=== PATIENT | male | born 1935 | race Caucasian/White ===

== ENCOUNTER 2019-11-18 07:01 | Emergency (ER) | payer MEDICARE, SELFPAY ==
--- NOTE | ~2019-11-18 | XR_ITS ---
EXAMINATION: XR tibia fibula LT 2V INDICATION: Left leg pain TECHNIQUE: Two views of the left leg are obtained on four radiographs COMPARISON: None available FINDINGS: There is medial soft tissue swelling overlying the distal tibia. No fracture, dislocation, or subluxation is identified. Mild osteoarthritis is noted in the knee and ankle. There is calcified atherosclerosis. IMPRESSION: 1. Soft tissue swelling overlying the distal leg without underlying osseous abnormality. Reviewed, dictated and finalized at location A. EY RIDE OPERATOR IMPRESSION: 1. Soft tissue swelling overlying the distal leg without underlying osseous abn ormality.
[2019-11-18 07:00] VITALS: BP 99/69; PULSE 97; RESP 18; TEMP 37.1; O2SAT 95
--- NOTE | 2019-11-18 07:04 | ED.LOWEXIN ---
HPI - Extremity Injury (Lower) General Chief Complaint: Extremity Injury, Lower Stated Complaint: leg pain History of Present Illness HPI Narrative: He was hit in the left meraz with a log while splitting wood last night. He had pain at the time, but it was only mild when not bearing weight. He was able to get around using a crutch, but could not walking unassisted. This morning the pain is no better and he has bruising to the meraz. No significant wound. Related Data Home Medications Medication Instructions Recorded Confirmed aspirin 81 mg PO DAILY 08/18/19 08/18/19 atorvastatin 08/18/19 carvedilol 08/18/19 docusate sodium [Stool Softener] PO 08/18/19 metolazone 08/18/19 ramipril mg 08/18/19 albuterol sulfate 90 mcg/actuation 2 puff INHALATION Q4-6H PRN gm 08/26/19 aerosol inhaler colchicine 0.6 mg tablet 1.2 mg PO .COMPLEX PRN tablet 08/26/19 umeclidinium 62.5 mcg-vilanterol 1 inhalation INHALATION DAILY 08/26/19 25 mcg/actuation powdr for inhalation Allergies Allergy/AdvReac Type Severity Reaction Status Date / Time No Known Allergies Allergy Verified 11/18/19 07:18 Review of Systems Constitutional: Constitutional: Denies weakness Eyes: Eyes: Denies change in vision Cardiovascular: Cardiovascular: Denies chest pain Respiratory: Respiratory: Reports dyspnea Gastrointestinal: Gastrointestinal: Denies nausea Neurologic: Denies numbness and Denies weakness PMFSH Past Medical History Medical History BPH (benign prostatic hyperplasia) Cyst on ear Hernia HTN (hypertension) Hyperlipidemia Myocardial infarction Surgical History Surgical History H/O hernia repair History of cardiac catheterization History of removal of cyst from ear Stented coronary artery Family History Family History Mother Family history of malignant neoplasm of kidney Social History Social History Smoking status: Former smoker Alcohol intake: never Gender identity (if verbalized by the patient): Male Exam Const: General: healthy appearing, no acute distress and alert Nutritional Appearance: well nourished Orientation/consciousness: patient oriented x3 HENMT: Head: normal to inspection Neck: Neck: normal visual inspection Resp: Effort & Inspection: normal respiratory effort Cardio: Other: 2+ DP on left Skin: General skin exam: normal color Wounds: wounds noted (minor abrasions to left meraz) Neuro: General: patient oriented x3 and moves all extremities Speech: normal speech Extrem: Other: bruising, abrasions and tenderness to left lateral meraz. No deformity. Normal ROM in left knee. Course Vital Signs Vital signs: Vital Signs Temperature 37.1 C 11/18/19 07:00 Pulse Rate 97 11/18/19 07:00 Respiratory Rate 18 11/18/19 07:00 Blood Pressure 99/69 L 11/18/19 07:00 Pulse Oximetry 95 11/18/19 07:00 Temperature 37.1 C 11/18/19 07:00 Pulse Rate 92 11/18/19 10:41 Respiratory Rate 18 11/18/19 10:41 Blood Pressure 104/69 11/18/19 10:41 Pulse Oximetry 96 11/18/19 10:41 Discharge Plan Discharge Clinical Impression: Contusion of left lower leg Qualifiers: Encounter type: initial encounter Qualified Code(s): S80.12XA - Contusion of left lower leg, initial encounter Patient Disposition: Home, Self-Care Condition: Stable Instructions: Contusion in Adults (ED) Prescriptions: No Action Anoro Ellipta 62.5-25 mcg/actuation blister with device 1 inhalation INHALATION DAILY RF: 0 albuterol sulfate [ProAir HFA] 90 mcg/actuation HFA aerosol inhaler 2 puff INHALATION Q4-6H PRNRF: 0 colchicine 0.6 mg tablet 1.2 mg PO .COMPLEX PRNRF: 0 metolazone 2.5 mg tablet RF: 0 atorvastatin 40 mg tablet
[2019-11-18 09:19] VITALS: BP 104/69; PULSE 80; RESP 18; O2SAT 97
[2019-11-18 10:41] VITALS: BP 104/69; PULSE 92; RESP 18; O2SAT 96
[2019-11-18] MEDS: ACETAMINOPHEN 500 MG TABLET 1000 MG PO (10:41)
== END 2019-11-18 10:43 | disposition home or self-care (01) ==
PROVIDERS: Emergency Provider Emergency Medicine; PCP Family Medicine
DX: S80.12XA Contusion of left lower leg, initial encounter (principal); N40.0 Benign prostatic hyperplasia without lower urinary tract symptoms; I10 Essential (primary) hypertension; E78.5 Hyperlipidemia, unspecified; I25.2 Old myocardial infarction; Z79.82 Long term (current) use of aspirin; Z95.5 Presence of coronary angioplasty implant and graft; Z87.891 Personal history of nicotine dependence; W22.8XXA Striking against or struck by other objects, initial encounter
CPT/HCPCS: 73590; 99283; A9270; J2704

== ENCOUNTER 2020-11-17 07:07 | Outpatient (CLI) | payer MEDICARE, SELFPAY ==
--- NOTE | 2020-11-17 07:42 | ECHO_ITS ---
Patient Info Name: Ernesto Su Age: 85 years : 1935 Gender: Male Ht: 72 in Wt: 250 lbs BSA: 2.44 m2 HR: 57 bpm BP: 119 / 67 mmHg Technical Quality: Good Exam Date: 11/17/2020 8:09 AM Exam Location: [facility] Patient Status: Outpatient Admit Date: 11/17/2020 Staff Ordering Physician: Ami Kim MD Draftsperson: Jericho Flores RDCS, RT Attending Provider: Ami Kim MD Referring Physician: Judy PULLIAM; Exam Type: CA echo doppler color flow Study Info Indications R06.02 - Shortness of breath Complete two-dimensional, color flow and Doppler transthoracic echocardiogram is performed. Summary 1. Complete two-dimensional, color flow and Doppler transthoracic echocardiogram is performed. 2. Left ventricular chamber dimension is normal. 3. The left ventricular diastolic function is grade I diastolic dysfunction. 4. Left ventricular systolic function is preserved, estimated at 50-55%. 5. E/e' 8 is minimally elevated. 6. Left atrial chamber dimension is mildly enlarged. 7. Right atrial chamber dimension is mildly enlarged. 8. There is mild aortic valve sclerosis. Left Ventricle E/e' 8 is minimally elevated. Left ventricular systolic function is preserved, estimated at 50-55%. Left ventricular chamber dimension is normal. The left ventricular diastolic function is grade I diastolic dysfunction. Right Ventricle Right ventricular systolic function is normal and with normal TAPSE 2.3 cm.. Right ventricular chamber dimension is normal. Left Atria Left atrial chamber dimension is mildly enlarged. Right Atria Right atrial chamber dimension is mildly enlarged. Aortic Valve The aortic valve is not well visualized. Cannot determine number of aortic valve leaflets. There is mild aortic valve sclerosis. There is no aortic valve stenosis. There is no aortic valve regurgitation. Pulmonic Valve The pulmonic valve is not well visualized. Mitral Valve There is no mitral valve stenosis. There is no mitral valve regurgitation. Tricuspid Valve There is no tricuspid valve regurgitation. Pericardium/Pleural There is no pericardial effusion. Inferior Vena Cava Normal inferior vena cava with >50% collapse upon inspiration consistent with normal right atrial pressure, 5 mmHg. Aorta The aortic root size at the sinus of Valsalva is normal. Left Ventricular Outflow Tract Name Value Normal LVOT 2D LVOT Diameter 2.0 cm LVOT Doppler LVOT Peak Gradient 2 mmHg LVOT Mean Gradient 1 mmHg LVOT VTI 14 cm LVOT VTI/AV VTI Ratio 0.7 LVOT Stroke Volume 48 ml LVOT CO 3.1 l/min LVOT CI 1.3 l/min/m2 Mitral Valve Name Value Normal MV Doppler
--- NOTE | 2020-11-17 16:19 | WPDPFTINT ---
PFT Interpretation This is a pulmonary function test with pre and post-bronchodilator spirometry, plethysmography and diffusing capacity. The test was performed and results interpreted in accordance with the 2019 and 2005 ATS/ERS Task Force guidelines respectively using the Dimas/Polvan reference equations. Findings: Spirometry: There is decreased maximal expiratory airflow at all lung volumes with concave expiratory flow tracing. The inspiratory flow tracing is normal. The pre bronchodilator FVC is 3.20 L, 75% predicted. The pre bronchodilator FEV1 is 1.27 L, 48% predicted. The FEV1: FVC ratio is 40%. The post bronchodilator FVC is 3.15 L, representing a 1% decrease. The post bronchodilator FEV1 is 1.27 L, representing no change. Plethysmography: The total lung capacity 7.15 L, 107% predicted. The functional residual capacity is 5.03 L, 145% predicted. The residual volume is 3.95 L, 137% predicted. Diffusing capacity: The absolute diffusion capacity is 16.1, 71% predicted. The diffusing capacity corrected for alveolar volume is 4.18, 130% predicted. Impression: There is a severe obstructive abnormality without significant improvement after inhaling a single dose of albuterol. The increase in residual volume is consistent with air trapping from an obstructive abnormality. Hyperinflation is present is demonstrated by the increase in functional residual capacity and is consistent with an obstructive abnormality. The diffusing capacity is normal. There are no prior studies for comparison
--- NOTE | 2020-11-17 16:22 | WPDSIXMINUTE ---
Six Minute Walk This is a 6 minutes walk test. The test was performed and interpreted in accordance with the 2014 ERS/ATS task force guidelines. Findings: The patient's resting room air oxygen saturation measured by pulse oximetry was 94% and her heart rate was 71 bpm. Patient ambulated for 137 meters and oxygen saturation remained 92 to 94%. Heart rate at the end of the study was 96 bpm. There are no prior studies for comparison.
== END 2020-11-17 07:08 | disposition home or self-care (01) ==
PROVIDERS: Family Provider Family Medicine; PCP Family Medicine; Visit Provider Internal Medicine Critical Care Medicine
DX: R06.00 Dyspnea, unspecified (principal); R94.2 Abnormal results of pulmonary function studies
CPT/HCPCS: 93306; 94060; 94618; 94726; 94729

== ENCOUNTER 2021-02-10 15:29 | Outpatient (CLI) | payer MEDICARE, SELFPAY ==
--- NOTE | ~2021-02-10 | XR_ITS ---
XR hand LT 2V DATE: 02/10/2021 15:56 INDICATION: Pain and swelling of second digit at metacarpophalangeal joint for 4 days TECHNIQUE: 3 views of left hand COMPARISON: 04/12/2019 left wrist FINDINGS: Diffuse osteopenia. There is severe osteoarthritic change at the first carpometacarpal joint. Osteoarthritic changes noted at some of the interphalangeal joints, primarily distal interphalangeal joints. Plate and screws are noted along the shaft of the proximal phalanx of the fourth digit. There is flex ion deformity at the fourth digit proximal interphalangeal joint and extension deformity at the dista l interphalangeal joint. No recent fracture or dislocation, periosteal reaction or bone destruction. 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
[2021-02-10 17:29] LABS: Uric Acid 10.6 mg/dL (3.5-8.5)
== END 2021-02-10 15:30 | disposition home or self-care (01) ==
PROVIDERS: PCP Family Medicine; Visit Provider Nurse Practitioner Family
DX: M25.40 Effusion, unspecified joint (principal); M19.042 Primary osteoarthritis, left hand; M79.645 Pain in left finger(s); M21.242 Flexion deformity, left finger joints
CPT/HCPCS: 36415; 73120; 84550

== ENCOUNTER 2021-03-12 07:59 | Outpatient (CLI) | payer MEDICARE, SELFPAY ==
[2021-03-12 08:23] LABS: Uric Acid 9.1 mg/dL (3.5-8.5)
== END 2021-03-12 08:00 | disposition home or self-care (01) ==
LOC: ANHLAB 08:02
PROVIDERS: PCP Family Medicine; Visit Provider Nurse Practitioner Family
DX: M10.9 Gout, unspecified (principal)
CPT/HCPCS: 36415; 84550

== ENCOUNTER → 2021-04-19 11:06 | Outpatient (CLI) | payer MEDICARE, SELFPAY ==
--- NOTE | ~2021-04-19 | XR_ITS ---
EXAMINATION: XR foot LT min 3V, XR foot RT min 3V DATE: 04/19/2021 11:50 INDICATION: Bilateral foot pain TECHNIQUE: 1. Dorsoplantar, two oblique and lateral views of the left foot were obtained. 2. Dorsoplantar, two oblique and lateral views of the right foot were obtained. COMPARISON: None. FINDINGS: Bilateral hallux valgus, 25 degrees on the left and 35 degrees on the right. Otherwise normal alignme nt at both feet. No fractures. Diffuse osteopenia at both feet. Mild polyarticular osteoarthritis thr oughout both feet. Small bilateral plantar calcaneal spurs. Small likely degenerative loose body ante riorly at the right ankle joint. No ankle joint effusions. Mild subcutaneous edema throughout both fe et. IMPRESSION: 1. Relatively symmetric diffuse osteopenia and mild polyarticular osteoarthritis at both feet. No acu te osseous abnormality. 2. Mild left and moderate right hallux valgus. Reviewed, dictated and finalized at location A. IMPRESSION: 1. Relatively symmetric diffuse osteopenia and mild polyarticular osteoarthriti s at both feet. No acute osseous abnormality. 2. Mild left and moderate right hallux valgus.
== END ==
PROVIDERS: PCP Family Medicine; Visit Provider Nurse Practitioner Family
DX: M20.11 Hallux valgus (acquired), right foot (principal); M20.12 Hallux valgus (acquired), left foot; M19.071 Primary osteoarthritis, right ankle and foot; M19.072 Primary osteoarthritis, left ankle and foot
CPT/HCPCS: 73630

== ENCOUNTER 2021-10-18 13:24 | Observation (INO) | payer MEDICARE, SELFPAY ==
[2021-10-18] VITALS (8 sets, daily range): BP systolic 119–156; BP diastolic 66–88; PULSE 77–93; RESP 17–42; TEMP 36–36.9; O2SAT 89–99; BMI 31.6
--- NOTE | ~2021-10-18 | XR_ITS ---
XR chest 1V portable 10/18/2021 14:14 Indication: Sudden onset of shortness of breath. Hypertension. Procedure: AP portable chest Comparison: Comparison to multiple prior studies sequentially, with oldest reviewed study dated 06/26. Findings: Bibasilar airspace disease, compatible with pneumonia. No significant effusion. No pneumoth orax. Pacemaker leads in expected position. Impression: 1: Bibasilar airspace disease, compatible with pneumonia. Reviewed, dictated and finalized at location B. T SUPERINTENDENT Impression: 1: Bibasilar airspace disease, compatible with pneumonia.
--- NOTE | ~2021-10-18 | XR_ITS ---
XR chest 2V 10/20/2021 09:24 Indication: Pneumonia Procedure: AP and lateral views of the chest Comparison: 10/18/2021 Findings: Heart size normal. Pacemaker leads are stable. There is bibasilar atelectasis. No focal pne umonia, edema, significant effusion or pneumothorax. There is atherosclerosis of the aorta. The lungs are hyperinflated which is consistent with, but not diagnostic of chronic obstructive pulmonary dise ase. Impression: 1: Bibasilar atelectasis. Reviewed, dictated and finalized at location B. ESSIONAL DEVELOPMENT INSTRUCTOR Impression: 1: Bibasilar atelectasis.
--- NOTE | 2021-10-18 13:56 | ECG_ITS ---
Measurements Intervals [place] Rate: 80 P: 9 AR: 206 QRS: -66 QRSD: 132 T: 68 QT: 398 QTc: 462 Interpretive Statements ELECTRONIC ATRIAL PACEMAKER ELECTRONIC VENTRICULAR PACEMAKER BASELINE ARTIFACT- I, II, III, AVR, AVL, AVF, V1-V6 NO FURTHER INTERPRETATION IS POSSIBLE ATYPICAL ECG Electronically Signed On 10-18-2021 14:12:56 DICER OPERATOR by Chapo Navarrete D.O.
--- NOTE | 2021-10-18 14:11 | ED.GENADULT ---
HPI - General Adult General Chief complaint: Shortness of Breath/Dyspnea Stated complaint: diff breathing Time Seen by Provider: 10/18/21 14:10 Source: patient and family Limitations: no limitations History of Present Illness HPI narrative: 85-year-old male history of PAD and COPD presents to the emergency department for evaluation of worsening shortness of breath. Patient states that he did have a fall on Monday and initially did not suspect that he injured himself. Patient states since that time he had worsening shortness of breath. Patient presents with his sister who states that when she went to see him this morning he had just walked and had much worse shortness of breath after exertion. Patient is not on oxygen at home. Patient states he did have wheezing at home. Upon arrival to emergency department patient does have increased work of breathing with associated wheeze. Patient is vaccinated against Covid. Patient states he had his pacemaker placed the Monday after [employer]. Related Data Allergies Allergy/AdvReac Type Severity Reaction Status Date / Time No Known Allergies Allergy Verified 10/18/21 13:41 Review of Systems Review of Systems: CONSTITUTIONAL: Denies fever, chills, or sweats. EYES: Denies visual changes, redness, or discharge. ENT: Denies rhinorrhea, congestion, sore throat, or otalgia. CARDIOVASCULAR: Denies chest pain, palpitations, or edema. RESPIRATORY: Cough and wheezing GASTROINTESTINAL: Denies abdominal pain, nausea, vomiting, or diarrhea. GENITOURINARY: Denies dysuria or hematuria. SKIN: Denies rash or itching. MUSCULOSKELETAL: Denies back pain, joint pain, or myalgia. Bilateral rib pain NEUROLOGIC: Denies headache, numbness, or weakness. [facility] Past Medical History Medical History (Updated 10/18/21 @ 14:45 by Srinivasan Wright MD) BMI 31.0-31.9,adult Body mass index (BMI) of 33.0 to 33.9 in adult BPH (benign prostatic hyperplasia) Cyst on ear Dyspnea Foot ulcer, right Hernia HTN (hypertension) Hyperlipidemia Hypokalemia Low vitamin D level Myocardial infarction Pain in left foot Pain in right foot Right medial knee pain Sick sinus syndrome Surgical History Surgical History H/O hernia repair History of cardiac catheterization History of removal of cyst from ear Stented coronary artery Family History Family History Mother Family history of malignant neoplasm of kidney Cancer Father No problems noted. Sibling No problems noted. Social History Social History Tobacco type: cigarettes Alcohol intake: former Substance use: never Substance use type: does not use Additional occupation/education comments: [employer]. Gender identity (if verbalized by the patient): Male Exam Narrative: APPEARANCE: Well appearing, no pain, no distress, well-nourished. Increased work of breathing HEAD: normocephalic, atraumatic. EYES: PERRLA/EOMI, conjunctivae clear. NOSE: Normal no drainage NECK: Supple. No adenopathy, no masses. RESPIRATORY: Airway patent, respirations nonlabored. Wheeze in all lung scherer CARDIOVASCULAR: Regular rate and rhythm without murmurs rubs or gallops. ABDOMINAL: Soft, nontender, nondistended, normal bowel sounds MUSCULOSKELETAL: Moves all extremities. Strength/ROM intact, No edema, No calf tenderness. NEURO: Alert. Cranial nerves II through XII intact. SKIN: Warm, dry. Normal Color Course Course Emergency Course: Chest x-ray was read as suspected pneumonia. Patient does have significant wheeze on exam. Patient was started on antibiotics Rocephin and azithromycin for underlying pneumonia. Patient was also started on site Medrol for possible underlying COPD exacerbation. Covid test was negative. Did have a new O2 requirement on arrival. Case wa
[2021-10-18] MEDS: methylPREDNISolone SOD SUCC 125 MG VIAL IV PUSH (14:16)
[2021-10-18] MEDS: ALBUTEROL SULFATE NEB 2.5 MG/0.5 ML INH 5 MG INHALATION (14:30)
[2021-10-18 14:38] LABS: Alveolar/Arterial O2 Gradient 93.1 mmHg; Base Excess ABG 7.5 mEq/l (+/-2.0); Carboxyhemoglobin 0.6 % THb (0-2.0); Fractional Inspired Oxygen 28 %; HCO3 ABG 33.7 mEq/l (22.0-26.0); Methemoglobin ABG 0.1 %THb (0-1.5); PCO2 ABG 54.2 mmHg (35.0-45.0); PO2 FiO2 Ratio Arterial Blood 1.52 %; Reduced Hemoglobin 21.9 %THb (0-5.0); Total Hemoglobin 13.8 g/dL (12.0-18.0); pH ABG 7.412 (7.350-7.450)
[2021-10-18 14:39] LABS: Basophils Percent Auto 0.4 % (0.2-1.2); Eosinophils Absolute Auto 0.4 K/mm3 (0-0.3); Eosinophils Percent Auto 3.9 % (0-4.4); Hematocrit 43.8 % (42.0-52.0); Hemoglobin 14.1 g/dL (14.0-18.0); Immature Granulocyte Absolute 0.05 K/mm3 (0.00-0.031); Immature Granulocyte Percent A 0.5 % (0-0.5); Lymphocytes Percent Auto 19.3 % (18.3-44.2); Mean Corpuscular HGB Conc 32.2 g/dl (32-36); Mean Corpuscular Hemoglobin 31.5 pg (26-34); Mean Corpuscular Volume 97.8 fl (80-100); Mean Platelet Volume 10.4 fl (7.4-10.4); Monocytes Absolute Auto 1.1 K/mm3 (0.1-0.6); Monocytes Percent Auto 11.4 % (2.6-8.5); Neutrophils Absolute Auto 6.4 K/mm3 (1.3-6.7); Neutrophils Percent Auto 64.5 % (45.5-73.1); Platelet Count Result 208 k/mm3 (150-375); Red Blood Count 4.48 M/mm3 (4.6-6.20); Red Cell Distribution Width 14.3 % (11.5-14.5); White Blood Count 9.9 K/mm3 (4.5-10.0)
[2021-10-18 14:41] LABS: Oxygen Saturation ABG 77.9 % (95.0-100.0); PO2 ABG 42.6 mmHg (80.0-100.0)
[2021-10-18 14:42] LABS: Device NASAL CANNULA; Modified Allen's Test Pass; Oxyhemoglobin 77.4 % THb (90.0-100.0); Site Drawn RIGHT RADIAL
[2021-10-18 14:51] LABS: INR 1.3; Partial Thromboplastin Time 33.4 SECONDS (22.3-36.8); Prothrombin Time 16.3 Seconds (11.1-14.7)
[2021-10-18 14:54] LABS: Alanine Aminotransferase 24 U/L (4-50); Albumin Level 3.9 g/dL (3.5-5.1); Alkaline Phosphatase 121 U/L (38-126); Anion Gap 5 mmol/L (8-16); Aspartate Amino Transferase 51 U/L (17-59); Bilirubin,Total 0.9 mg/dL (0.2-1.3); Blood Urea Nitrogen 35 mg/dL (9-20); Calcium 8.8 mg/dL (8.4-10.2); Carbon Dioxide 38 mmol/L (22-30); Chloride 98 mmol/L (98-107); Estimated CRCL calculation 53 ml/min; Estimated Glomerular Filt Rate 58; Glucose 128 mg/dL (65-110); Potassium 3.9 mmol/L (3.4-5.0); Sodium 141 mmol/L (137-145)
[2021-10-18 15:05] LABS: NT Pro B Type Natriuretic Pept 1610 pg/mL (5-100); Troponin I 0.023 ng/mL (0.000-0.034)
[2021-10-18 15:10] LABS: SARS-CoV-2 RNA PCR Negative
--- NOTE | 2021-10-18 20:17 | PM.IMHP ---
H&P: HPI History of Present Illness Date/Time: 10/18/21 20:17 Chief Complaint: SHORTNESS OF BREATH Narrative: This is an 85-year-old male with past medical history significant for severe COPD/emphysema, hypertension, benign prostatic hyperplasia, dyslipidemia, myocardial infarction, sick sinus rhythm. Patient presented to the emergency room due to worsening shortness of breath and wheezing cough with production of phlegm according to patient he had a ground level fall few days ago and have notice worsening shortness of breath ever since. Patient denies any fevers, rigors, chills, chest pain, PND or leg swelling, no loss of consciousness ,no lightheadedness, no dizziness. In emergency room patient was found to have a low oxygen saturation, was placed on supplemental oxygen by nasal cannula. Preliminary workup was significant for chest x-ray with bibasal lung infiltrates Decision has been made to admit the patient for further evaluation management and treatment. Review of Systems Review of Systems: Worsening shortness of breath, cough sputum production, fall. Constitutional: Constitutional: Denies chills, Denies fever(s), Reports frequent falls and Reports weakness Eyes: Eyes: Denies change in vision ENT: Denies dysphagia, Denies vertigo, Denies dizziness, Denies nasal congestion, Denies nasal discharge, Denies nasal obstruction and Denies odynophagia Cardiovascular: Cardiovascular: Denies chest pain, Denies pedal edema, Denies claudication, Denies leg edema, Denies radiating jaw, neck or arm pain, Denies palpitations, Reports dyspnea, Denies dyspnea on exertion and Denies orthopnea Respiratory: Respiratory: Reports change in phlegm color, Reports cough, Reports excessive phlegm production and Reports dyspnea Gastrointestinal: Gastrointestinal: Denies abdominal pain, Denies diarrhea, Denies nausea and Denies vomiting Genitourinary: Genitourinary: Denies dysuria Musculoskeletal: Comments: Fall Integumentary/Breasts: Skin/Breast: Denies rash Neurologic: Denies focal weakness and Denies Sensory deficit (Neuro) Psychiatric: Psychiatric: Reports no additional psychiatric complaints and Reports as per HPI Endocrine: Endocrine: Denies cold intolerance, Denies heat intolerance, Denies polyphagia, Denies polydipsia and Denies palpitations Hematologic/Lymphatic: Hematologic/Lymphatic: Reports no additional hematologic/lymphatic complaints and Reports as per HPI Allergic/Immunologic: Allergic/Immunologic: Reports no additional allergic/immunologic complaints and Reports as per [facility] Past Medical History Medical History (Updated 10/19/21 @ 04:08 by Damon Casper MD) BMI 31.0-31.9,adult Body mass index (BMI) of 33.0 to 33.9 in adult BPH (benign prostatic hyperplasia) Cyst on ear Dyspnea Foot ulcer, right Hernia HTN (hypertension) Hyperlipidemia Hypokalemia Low vitamin D level Myocardial infarction Pain in left foot Pain in right foot Right medial knee pain Sick sinus syndrome Surgical History Surgical History H/O hernia repair History of cardiac catheterization History of removal of cyst from ear Stented coronary artery Family History Family History Mother Family history of malignant neoplasm of kidney Cancer Father No problems noted. Sibling No problems noted. Social History Social History Smoking status: Former smoker Tobacco type: cigarettes Alcohol intake: former Substance use: never Substance use type: does not use Additional occupation/education comments: [employer]. Gender identity (if verbalized by the patient): Male Spiritual care concerns: No Meds Home Medications and Allergies Home Medications Medication Instructions Recorded Confirmed Type alfuzosin 10 mg tablet,extend
--- NOTE | 2021-10-18 22:07 | ADMGEN ---
This patient, Ernesto Su, was admitted to Medical Room 259-01. Patient/family oriented to hospital policies and general routines including ID bracelet, bed and alarms, visiting hours, pain management, procedures, bathroom and other care routines, personal items, smoking policy, room service/diet, and visiting hours. Information on how to activate the Rapid Response Team has been discussed. Patient/Family are encouraged to report perceived risks to care and to ask questions if they do not understand what they are told or what they should do.
[2021-10-19] VITALS (11 sets, daily range): BP systolic 129–154; BP diastolic 65–76; PULSE 75–89; RESP 17–30; TEMP 35.9–36.8; O2SAT 94–97
--- NOTE | 2021-10-19 | ECHO_ITS ---
Patient Info Name: Ernesto Su Age: 85 years : 1935 Gender: Male Ht: 72 in Wt: 230 lbs BSA: 2.33 m2 HR: 83 bpm BP: 145 / 76 mmHg Technical Quality: Fair Exam Date: 10/19/2021 10:08 AM Exam Location: [facility] Patient Status: Inpatient Admit Date: 10/18/2021 Staff Ordering Physician: Damon Casper MD Manager Intermediate: Jericho Flores RDCS, RT Attending Provider: Gabriela Chappell DO Referring Physician: Tremayne HERNANDEZ; Exam Type: CA echo dop color flow w con Study Info Indications I50.9 - Heart failure, unspecified Complete two-dimensional, color flow and Doppler transthoracic echocardiogram is performed with contrast to opacify the left ventricle and to improve the deliniation of the left ventricle endocardial borders. Summary 1. Left ventricular chamber dimension is mildly enlarged. 2. Definity contrast administered improved wall motion interpretation. 3. Left ventricular systolic function is normal, estimated at 55-60%. 4. Left ventricular septal wall motion is abnormal with septal motion related to bundle branch block. 5. The left ventricular diastolic function is grade I diastolic dysfunction. 6. E/e' 10 is mildly elevated. 7. Linear artifact in right ventricle suggestive of catheter(s), pacemaker lead(s), or ICD lead(s). 8. Linear artifact in the right atrium suggestive of catheter(s), pacemaker lead(s), or ICD lead(s). 9. There is mild aortic valve sclerosis. 10. There is trace aortic valve regurgitation. Left Ventricle E/e' 10 is mildly elevated. Definity contrast administered improved wall motion interpretation. Left ventricular chamber dimension is mildly enlarged. Left ventricular systolic function is normal, estimated at 55-60%. Left ventricular septal wall motion is abnormal with septal motion related to bundle branch block. The left ventricular diastolic function is grade I diastolic dysfunction. Right Ventricle Right ventricular systolic function is normal and with normal TAPSE 2.1 cm. Linear artifact in right ventricle suggestive of catheter(s), pacemaker lead(s), or ICD lead(s). Right ventricular chamber dimension is normal. Left Atria Left atrial chamber dimension is normal. Right Atria Linear artifact in the right atrium suggestive of catheter(s), pacemaker lead(s), or ICD lead(s). Right atrial chamber dimension is normal. Aortic Valve The aortic valve is trileaflet. There is mild aortic valve sclerosis. There is no aortic valve stenosis. There is trace aortic valve regurgitation. Pulmonic Valve There is no pulmonic regurgitation. Mitral Valve There is no mitral valve stenosis. There is no mitral valve regurgitation. Tricuspid Valve There is no tricuspid valve regurgitation. Pericardium/Pleural There is no pericardial effusion. Inferior Vena Cava Normal inferior vena cava with >50% collapse upon inspiration consistent with normal right atrial pressure, 5 mmHg. Aorta The aortic root size at the sinus of Valsalva is normal. Left Ventricular Outflow Tract Name Value Normal LVOT 2D LVOT Diameter 2.04 cm LVOT Doppler LVOT Peak Gradient
[2021-10-19] MEDS: methylPREDNISolone SOD SUCC 125 MG VIAL 60 MG IV PUSH ×5 (01:09→23:17)
[2021-10-19] MEDS: ALBUTEROL SULFATE NEB 2.5 MG/0.5 ML INH 5 MG INHALATION ×4 (01:40→20:55)
[2021-10-19] MEDS: IPRATROPIUM BR 0.02% INH SOLN 0.5 MG/2.5 ML VIAL INHALATION ×4 (01:41→20:55)
[2021-10-19] MEDS: ASPIRIN 81 MG CHEWABLE TABLET PO (10:51)
[2021-10-19] MEDS: carvediloL 3.125 MG TABLET PO ×2 (10:51→21:01)
[2021-10-19] MEDS: APIXABAN 2.5 MG TABLET PO ×2 (10:51→16:59)
[2021-10-19] MEDS: ATORVASTATIN 40 MG TABLET PO (10:51)
[2021-10-19] MEDS: FLUTICASONE PROPIONATE 0.05% NA SPR 16 GM BTL (*BKC) 2 SPRAY NASAL (10:52)
[2021-10-19] MEDS: metOLazone 2.5 MG TABLET PO (10:52)
[2021-10-19] MEDS: PREGABALIN (*CRX) 50 MG CAPSULE PO ×2 (10:52→16:59)
[2021-10-19] MEDS: FINASTERIDE 5 MG TABLET PO (10:52)
[2021-10-19] MEDS: PERFLUTREN LIPID MICROSPHERES 1.5 ML VIAL DILUTED TO 10 ML TOTAL VOLUME IV PUSH (10:54)
[2021-10-19] MEDS: cefTRIAXone 2 GM in SODIUM CHLORIDE 0.9% IV 100 ML 200 ML IVPB (13:11)
--- NOTE | 2021-10-19 14:00 | PM.IMPN ---
Progress Note: A&P Assessment and Plan (1) Fall: Code(s): W19.XXXA - Unspecified fall, initial encounter Status: Acute Assessment and Plan: Patient admitted for evaluation after a fall. He was appropriately started a on fall precautions. PT call OT consults have been ordered. Patient will receive a Life Alert upon discharge for safety. Physical therapy as an outpatient. (2) Pneumonia: Qualifiers: Laterality: bilateral Lung location: unspecified part of lung Pneumonia type: due to unspecified organism Qualified Code(s): J18.9 - Pneumonia, unspecified organism Code(s): J18.9 - Pneumonia, unspecified organism Status: Acute Assessment and Plan: Patient started on Rocephin and Zithromax. Continue IV antibiotics. Currently patient is breathing comfortably on room air. (3) COPD with exacerbation: Code(s): J44.1 - Chronic obstructive pulmonary disease with (acute) exacerbation Status: Acute Assessment and Plan: Patient was started on aggressive pulmonary toilet with albuterol and ipratropium nebulization. Continue breathing treatments Breathing treatments. He was given systemic steroids. However there is no evidence of COPD exacerbation at this moment. We will stop steroids. (4) Restless leg syndrome: Code(s): G25.81 - Restless legs syndrome Status: Acute Assessment and Plan: Check iron panel. 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 His blood pressure has been fluctuating between 119/60 6-150 4/75. Continue home medications. (8) Sick sinus syndrome: Code(s): I49.5 - Sick sinus syndrome Status: Acute Assessment and Plan: Status post pacemaker. Check last pacemaker interrogation day. (9) Gout, unspecified: Qualifiers: Gout site: hand Gout etiology: unspecified cause Code(s): M10.9 - Gout, unspecified Status: Acute Assessment and Plan: Stable Continue to monitor (10) Stage 3 chronic kidney disease: Qualifiers: Chronic kidney disease stage 3 subtype: stage 3a (GFR 45-59) Qualified Code(s): N18.31 - Chronic kidney disease, stage 3a Code(s): N18.3 - Chronic kidney disease, stage 3 (moderate) Status: Acute Assessment and Plan: BUN and creatinine at patient's baseline Continue to monitor. Subjective Date/time seen: 10/19/21 14:00 Narrative:This is an 85-year-old male with past medical history significant for severe COPD/emphysema, hypertension, benign prostatic hyperplasia, dyslipidemia, myocardial infarction, sick sinus rhythm. Patient presented to the emergency room due to worsening shortness of breath and wheezing cough with production of phlegm according to patient he had a ground level fall few days ago and have notice worsening shortness of breath ever since. Patient denies any fevers, rigors, chills, chest pain, PND or leg swelling, no loss of consciousness ,no lightheadedness, no dizziness. In emergency room patient was found to have a low oxygen saturation, was placed on supplemental oxygen by nasal cannula. Preliminary workup was significant for chest x-ray with bibasal lung infiltrates Decision has been made to admit the patient for further evaluation management and treatment. S: Patient was seen and examined at the bedside. He was laying in bed in no acute distress. He reported bilateral elbow and bi
--- NOTE | 2021-10-19 17:20 | PC.NURSE ---
On 10/19/21 the student Shani Weber, provided care and completed [employer] documentation on this patient. I have reviewed the student's documentation and agree with the plan of care.
[2021-10-20] VITALS (10 sets, daily range): BP systolic 122–132; BP diastolic 58–68; PULSE 74–88; RESP 17–22; TEMP 36–36.6; O2SAT 93–98
[2021-10-20] MEDS: ALBUTEROL SULFATE NEB 2.5 MG/0.5 ML INH 5 MG INHALATION ×2 (01:46→20:24)
[2021-10-20] MEDS: IPRATROPIUM BR 0.02% INH SOLN 0.5 MG/2.5 ML VIAL INHALATION ×2 (01:46→20:24)
[2021-10-20] MEDS: methylPREDNISolone SOD SUCC 125 MG VIAL 60 MG IV PUSH (05:25)
[2021-10-20] MEDS: ATORVASTATIN 40 MG TABLET PO (08:32)
[2021-10-20] MEDS: FINASTERIDE 5 MG TABLET PO (08:32)
[2021-10-20] MEDS: PREGABALIN (*CRX) 50 MG CAPSULE PO ×2 (08:32→16:40)
[2021-10-20] MEDS: APIXABAN 2.5 MG TABLET PO ×2 (08:32→16:40)
[2021-10-20] MEDS: metOLazone 2.5 MG TABLET PO (08:32)
[2021-10-20] MEDS: ASPIRIN 81 MG CHEWABLE TABLET PO (08:32)
[2021-10-20] MEDS: carvediloL 3.125 MG TABLET PO ×2 (08:32→20:45)
[2021-10-20] MEDS: FLUTICASONE PROPIONATE 0.05% NA SPR 16 GM BTL (*BKC) 2 SPRAY NASAL (08:32)
--- NOTE | 2021-10-20 11:19 | PM.IMPN ---
Progress Note: A&P Assessment and Plan (1) Fall: Code(s): W19.XXXA - Unspecified fall, initial encounter Status: Acute Assessment and Plan: Patient admitted for evaluation after a fall. He was appropriately started a on fall precautions. PT call OT consults have been ordered. Patient will receive a Life Alert upon discharge for safety. Physical therapy as an outpatient. (2) Pneumonia: Qualifiers: Laterality: bilateral Lung location: unspecified part of lung Pneumonia type: due to unspecified organism Qualified Code(s): J18.9 - Pneumonia, unspecified organism Code(s): J18.9 - Pneumonia, unspecified organism Status: Acute Assessment and Plan: Patient started on Rocephin and Zithromax. Continue IV antibiotics. Currently patient is breathing comfortably on room air. With continuous clinical improvement may consider discharge in another day or 2. (3) COPD with exacerbation: Code(s): J44.1 - Chronic obstructive pulmonary disease with (acute) exacerbation Status: Acute Assessment and Plan: Patient was started on aggressive pulmonary toilet with albuterol and ipratropium nebulization. Continue breathing treatments Breathing treatments. He was given systemic steroids. However there is no evidence of COPD exacerbation at this moment. We will stop steroids. (4) Restless leg syndrome: Code(s): G25.81 - Restless legs syndrome Status: Acute Assessment and Plan: Check iron panel. 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 His blood pressure has been fluctuating between 119/60 6-150 4/75. Continue home medications. (8) Sick sinus syndrome: Code(s): I49.5 - Sick sinus syndrome Status: Acute Assessment and Plan: Status post pacemaker. Check last pacemaker interrogation day. (9) Gout, unspecified: Qualifiers: Gout site: hand Gout etiology: unspecified cause Code(s): M10.9 - Gout, unspecified Status: Acute Assessment and Plan: Stable Continue to monitor (10) Stage 3 chronic kidney disease: Qualifiers: Chronic kidney disease stage 3 subtype: stage 3a (GFR 45-59) Qualified Code(s): N18.31 - Chronic kidney disease, stage 3a Code(s): N18.3 - Chronic kidney disease, stage 3 (moderate) Status: Acute Assessment and Plan: BUN and creatinine at patient's baseline Continue to monitor. Subjective Date/time seen: 10/20/21 11:19 S: Patient was seen examined at the bedside. He is doing better. Denies any complaints. He is anxious to go home. Review of Systems Review of Systems: All systems reviewed & are unremarkable except as noted in HPI and below Constitutional: Constitutional: Denies chills, Denies fever(s), Reports frequent falls and Reports weakness Eyes: Eyes: Denies change in vision ENT: Denies dysphagia, Denies vertigo, Denies dizziness, Denies nasal congestion, Denies nasal discharge, Denies nasal obstruction and Denies odynophagia Cardiovascular: Cardiovascular: Denies chest pain, Denies pedal edema, Denies claudication, Denies leg edema, Denies radiating jaw, neck or arm pain, Denies palpitations, Reports dyspnea, Denies dyspnea on exertion and Denies orthopnea Respiratory: Respiratory: Reports change in phlegm color, Reports cough, Reports excessive phlegm production, Reports dyspnea and Denies dyspnea on ex
[2021-10-20] MEDS: cefTRIAXone 2 GM in SODIUM CHLORIDE 0.9% IV 100 ML 200 ML IVPB (13:40)
--- NOTE | 2021-10-20 16:20 | PM.DS ---
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 He was appropriately started a on fall precautions. PT call OT consults have been ordered. Patient will receive a Life Alert upon discharge for safety. Physical therapy as an outpatient. (2) Pneumonia: Qualifiers: Laterality: bilateral Lung location: unspecified part of lung Pneumonia type: due to unspecified organism Qualified Code(s): J18.9 - Pneumonia, unspecified organism Code(s): J18.9 - Pneumonia, unspecified organism Status: Acute Assessment and Plan: Patient started on Rocephin and Zithromax. Continue IV antibiotics. Currently patient is breathing comfortably on room air. With continuous clinical improvement may consider discharge in another day or 2. (3) COPD with exacerbation: Code(s): J44.1 - Chronic obstructive pulmonary disease with (acute) exacerbation Status: Acute Assessment and Plan: Patient was started on aggressive pulmonary toilet with albuterol and ipratropium nebulization. Continue breathing treatments Breathing treatments. He was given systemic steroids. However there is no evidence of COPD exacerbation at this moment. We will stop steroids. (4) Restless leg syndrome: Code(s): G25.81 - Restless legs syndrome Status: Acute Assessment and Plan: Check iron panel. 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 His blood pressure has been fluctuating between 119/60 6-150 4/75. Continue home medications. (8) Sick sinus syndrome: Code(s): I49.5 - Sick sinus syndrome Status: Acute Assessment and Plan: Status post pacemaker. Check last pacemaker interrogation day. (9) Gout, unspecified: Qualifiers: Gout etiology: unspecified cause Gout site: hand Code(s): M10.9 - Gout, unspecified Status: Acute Assessment and Plan: Stable Continue to monitor (10) Stage 3 chronic kidney disease: Qualifiers: Chronic kidney disease stage 3 subtype: stage 3a (GFR 45-59) Qualified Code(s): N18.31 - Chronic kidney disease, stage 3a Code(s): N18.3 - Chronic kidney disease, stage 3 (moderate) Status: Acute Assessment and Plan: BUN and creatinine at patient's baseline Continue to monitor. DS: Summary Hospital Course Reason for hospitalization: Shortness of breath Hospital Course: Please refer to admission H& P. Briefly,this is an 85-year-old male with past medical history significant for severe COPD/emphysema, hypertension, benign prostatic hyperplasia, dyslipidemia, myocardial infarction, sick sinus rhythm. Patient presented to the emergency room due to worsening shortness of breath and wheezing cough with production of phlegm according to patient he had a ground level fall few days ago and have notice worsening shortness of breath ever since. Patient den
[2021-10-21] MEDS: ALBUTEROL SULFATE NEB 2.5 MG/0.5 ML INH 5 MG INHALATION ×2 (01:54→08:52)
[2021-10-21] MEDS: IPRATROPIUM BR 0.02% INH SOLN 0.5 MG/2.5 ML VIAL INHALATION ×2 (01:55→08:52)
[2021-10-21 01:57] VITALS: PULSE 81
[2021-10-21 02:04] VITALS: PULSE 87
[2021-10-21 06:00] VITALS: BP 136/76; PULSE 80; RESP 18; TEMP 36.4; O2SAT 96
[2021-10-21 08:31] VITALS: PULSE 72
[2021-10-21] MEDS: ATORVASTATIN 40 MG TABLET PO (08:31)
[2021-10-21] MEDS: carvediloL 3.125 MG TABLET PO (08:31)
[2021-10-21] MEDS: metOLazone 2.5 MG TABLET PO (08:31)
[2021-10-21] MEDS: ASPIRIN 81 MG CHEWABLE TABLET PO (08:31)
[2021-10-21] MEDS: APIXABAN 2.5 MG TABLET PO (08:31)
[2021-10-21] MEDS: FINASTERIDE 5 MG TABLET PO (08:31)
[2021-10-21] MEDS: FLUTICASONE PROPIONATE 0.05% NA SPR 16 GM BTL (*BKC) 2 SPRAY NASAL (08:31)
[2021-10-21] MEDS: PREGABALIN (*CRX) 50 MG CAPSULE PO (08:44)
[2021-10-21 08:52] VITALS: PULSE 82; RESP 18
[2021-10-21 09:00] VITALS: PULSE 83; RESP 18
[2021-10-21 10:21] LABS: Iron 97 ug/dL (49-181)
[2021-10-21 10:30] LABS: Percent Iron Saturation 49 % (20-50)
== END 2021-10-21 13:23 | disposition home health service (06) ==
LOC: ANHED 16:35 → ANH2MED 23:00 → ANH3MEDSUR 10-22 10:54
PROVIDERS: Emergency Medicine; Admitting Provider Internal Medicine; Emergency Provider Emergency Medicine; PCP Family Medicine; Visit Provider Internal Medicine
DX: J18.9 Pneumonia, unspecified organism (principal); J44.0 Chronic obstructive pulmonary disease with (acute) lower respiratory infection; J44.1 Chronic obstructive pulmonary disease with (acute) exacerbation; R06.02 Shortness of breath; I12.9 Hypertensive chronic kidney disease with stage 1 through stage 4 chronic kidney disease, or unspecified chronic kidney disease; N18.30 Chronic kidney disease, stage 3 unspecified; N40.0 Benign prostatic hyperplasia without lower urinary tract symptoms; E78.5 Hyperlipidemia, unspecified; I25.2 Old myocardial infarction; I49.5 Sick sinus syndrome; G25.81 Restless legs syndrome; G62.89 Other specified polyneuropathies; M48.061 Spinal stenosis, lumbar region without neurogenic claudication; M10.9 Gout, unspecified; W19.XXXA Unspecified fall, initial encounter; Z20.822 Contact with and (suspected) exposure to COVID-19; Z95.5 Presence of coronary angioplasty implant and graft; Z87.891 Personal history of nicotine dependence; Z79.82 Long term (current) use of aspirin
CPT/HCPCS: 36415; 36600; 71045; 71046; 80053; 82375; 82728; 82805; 83050; 83540; 83550; 83880; 84484; 85025; 85610; 85730; 87040; 93005; 94640; 96365; 96366; 96367; 96375; 96376; 97116; 97161; 97165; 97530; 99285; A9270; C8929; C9803; G0378; J0456; J0696; J2930; Q9957; U0003; U0005

== ENCOUNTER 2022-01-05 14:58 | Emergency (ER) | payer MEDICARE, SELFPAY ==
--- NOTE | ~2022-01-05 | XR_ITS ---
EXAMINATION: XR hip RT 2V w AP pelvis EXAM DATE: 01/05/2022 15:32 INDICATION: Fell 2 days ago, persistent right hip pain. TECHNIQUE: Right hip frontal, 'frog leg' projections for interpretation. Frontal projection pelvis. There is no prior study for comparison. FINDINGS: There are no acute fractures identified. No hip dislocation. There is serpiginous right fem oral head sclerosis, avascular necrosis, but with maintained smooth femoral head articular surface. T here is severe left hip, moderate right hip primary osteoarthritis. Extensive arterial sclerotic dis ease. IMPRESSION: 1. No acute pelvic or right hip fractures. 2. Chronic findings. Reviewed, dictated and finalized at location B.
[2022-01-05 15:02] VITALS: BP 165/92; PULSE 87; RESP 16; TEMP 36.2; O2SAT 97
--- NOTE | 2022-01-05 15:15 | ED.LOWEXIN ---
HPI - Extremity Injury (Lower) General Chief Complaint: Extremity Injury, Lower Stated Complaint: fall 2 days ago, r hip pain Time Seen by Provider: 01/05/22 15:10 History of Present Illness HPI Narrative: 86-year-old male presents emergency room status post mechanical fall for evaluation for right hip pain. Patient is normally ambulatory with the assistance of a walker. Patient reports right hip and right groin pain, patient has been ambulatory since the injury. Related Data Home Medications Medication Instructions Recorded Confirmed cholecalciferol (vitamin D3) 25 25 mcg PO DAILY 12/30/21 12/30/21 mcg (1,000 unit) capsule potassium chloride 10 mEq 20 meq PO DAILY cap 12/30/21 12/30/21 capsule,extended release Allergies Allergy/AdvReac Type Severity Reaction Status Date / Time No Known Allergies Allergy Verified 12/30/21 08:29 Review of Systems Review of Systems: CONSTITUTIONAL: Denies fever, chills, or sweats. EYES: Denies visual changes, redness, or discharge. ENT: Denies rhinorrhea, congestion, sore throat, or otalgia. CARDIOVASCULAR: Denies chest pain, palpitations, or edema. RESPIRATORY: Denies cough or dyspnea. GASTROINTESTINAL: Denies abdominal pain, nausea, vomiting, or diarrhea. GENITOURINARY: Denies dysuria or hematuria. SKIN: Denies rash or itching. MUSCULOSKELETAL: Reports right hip pain NEUROLOGIC: Denies headache, numbness, dizziness, or weakness. PSYCHIATRIC: Denies anxiety or depression. [facility] Past Medical History Medical History BMI 31.0-31.9,adult Body mass index (BMI) of 33.0 to 33.9 in adult BPH (benign prostatic hyperplasia) Cyst on ear Dyspnea Foot ulcer, right Hernia HTN (hypertension) Hyperlipidemia Hypokalemia Low vitamin D level Myocardial infarction Pain in left foot Pain in right foot Right medial knee pain Sick sinus syndrome Surgical History Surgical History H/O hernia repair History of cardiac catheterization History of removal of cyst from ear Stented coronary artery Family History Family History Mother Family history of malignant neoplasm of kidney Cancer Father No problems noted. Sibling No problems noted. Social History Social History Tobacco type: cigarettes Alcohol intake: former Substance use: never Substance use type: does not use Additional occupation/education comments: [employer]. Gender identity (if verbalized by the patient): Male Spiritual care concerns: No Exam Narrative: GENERAL: Well-appearing, well-nourished, and in no acute distress. HEAD: Normocephalic, atraumatic. EYES: PERRLA and EOMI. CHEST: Clear to auscultation. No respiratory distress. No wheezes rales or rhonchi HEART: Regular rate and rhythm. No murmur heard. Normal peripheral pulses. ABDOMEN: Soft, nontender, nondistended, normal active bowel sounds. EXTREMITIES: Right inguinal pain; right hip: Pain worse with IR and ER, distal pulses present SKIN: Skin tear to left elbow NEURO: No focal deficits. Alert and oriented x3. PSYCH: Normal mood and affect. Course Vital Signs Vital signs: Vital Signs Temperature 36.2 C L 01/05/22 15:02 Pulse Rate 87 01/05/22 15:02 Respiratory Rate 16 01/05/22 15:02 Blood Pressure 165/92 H 01/05/22 15:02 Pulse Oximetry 97 01/05/22 15:02 Temperature 36.2 C L 01/05/22 15:02 Pulse Rate 87 01/05/22 15:02 Respiratory Rate 16 01/05/22 15:02 Blood Pressure 165/92 H 01/05/22 15:02 Pulse Oximetry 97 01/05/22 15:02 MDM - Extremity Injury (Lower) MDM Narrative Medical decision making narrative: 86-year-old male presented to emergency room with complaints of a week ago fall from standing position 2 days ago. Patient states that he was walk
[2022-01-05] MEDS: ACETAMINOPHEN 500 MG TABLET 1000 MG PO (16:23)
[2022-01-05 16:59] VITALS: O2SAT 98
== END 2022-01-05 17:00 | disposition home or self-care (01) ==
PROVIDERS: Emergency Provider Nurse Practitioner Family; PCP Family Medicine
DX: S76.011A Strain of muscle, fascia and tendon of right hip, initial encounter (principal); N40.0 Benign prostatic hyperplasia without lower urinary tract symptoms; I10 Essential (primary) hypertension; E78.5 Hyperlipidemia, unspecified; I25.2 Old myocardial infarction; Z95.5 Presence of coronary angioplasty implant and graft; F17.210 Nicotine dependence, cigarettes, uncomplicated; W19.XXXA Unspecified fall, initial encounter
CPT/HCPCS: 73502; 99283; A9270

== ENCOUNTER 2022-05-03 18:08 | Inpatient (IN) | payer MEDICARE, SELFPAY ==
--- NOTE | ~2022-05-03 | XR_ITS ---
EXAMINATION: XR chest 2V Exam Date/Time: 05/03/2022 18:18 CDT HISTORY: weakness Comparison: 10/20/2021. RESULT: Lines, tubes, and devices: Left pacer with intact leads. Lungs and pleura: Clear. Cardiomediastinal silhouette: Stable. Other: No acute osseous or upper abdominal finding. IMPRESSION: No acute cardiopulmonary process. Reviewed, dictated and finalized at location K.
--- NOTE | ~2022-05-03 | CT_ITS ---
EXAMINATION: CT brain wo con DATE: 05/03/2022 19:35 INDICATION: fall . TECHNIQUE: Computed tomography (CT) of the head was performed without intravenous contrast. The mA wa s adjusted according to patient size. Iterative reconstruction technique was employed. The dose-lengt h product was 605.33 mGy-cm. COMPARISON: None FINDINGS: No acute intracranial hemorrhage or extra-axial fluid collection. No hydrocephalus, mass, or herniation. No acute ischemic infarct. Unremarkable dural venous sinus attenuation. No acute osseous abnormality. The aerated spaces are clear. Remote right mastoidectomy. Moderate atrophy and mild chronic white matter change. Atherosclerotic in tracranial calcification. 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 IMPRESSION: No acute intracranial process. Reviewed, dictated and finalized at location K.
[2022-05-03 18:12] VITALS: BP 185/78; PULSE 92; RESP 18; TEMP 36.7; O2SAT 95
--- NOTE | 2022-05-03 18:12 | ECG_ITS ---
Measurements Intervals [place] Rate: 92 P: -83 VA: 189 QRS: -69 QRSD: 158 T: 89 QT: 394 QTc: 488 Interpretive Statements PROBABLE ATRIAL FIBRILLATION INTRAVENTRICULAR CONDUCTION DELAY LEFT ANTERIOR FASCICULAR BLOCK COMPARED TO THE PRIOR TRACING, THE PATIENT APPEARS TO BE IN ATRIAL FIBRILLATION. HOWEVER THERE IS A LARGE AMOUNT OF BASELINE ARTIFACT PRESENT. Electronically Signed On 05-04-2022 18:10:18 CDT by Cheli Morel M.D.
--- NOTE | 2022-05-03 18:20 | ED.WEAKNESS ---
HPI - Weakness General Chief complaint: Weakness Stated complaint: gen wkns; fall Time Seen by Provider: 05/03/22 18:20 History of Present Illness HPI Narrative: The patient is an 86-year-old male with a history of ischemic cardiomyopathy, chronic kidney disease, hypertension presenting for evaluation of a ground-level fall. Patient states that he was ambulating in the bathroom when he began to tripped over his feet, causing him to fall in the bathroom. Patient states he did hit the back of his head but denies loss of consciousness. Patient reports feeling generally weak without focal weakness or numbness. He was unable to stand thus EMS was alerted and came to the patient's house. They encouraged him to be evaluated at the [facility]. Patient denies any headache, vision changes, unilateral weakness or numbness. Denies nausea or vomiting. Patient denies any significant pain. He reports a abrasion to his left arm. Patient states he is not up-to-date on a tetanus. Patient denies prodromal symptoms prior to the fall such as chest pain, lightheadedness or dizziness. Denies any current chest pain, shortness of breath. Patient denies any back pain or pelvic pain. Related Data Home Medications Medication Instructions Recorded Confirmed Eliquis 2.5 mg 05/03/22 Allergies Allergy/AdvReac Type Severity Reaction Status Date / Time No Known Allergies Allergy Verified 05/03/22 18:19 Review of Systems Review of Systems: CONSTITUTIONAL: Denies fever, chills, or sweats. EYES: Denies visual changes, redness, or discharge. ENT: Denies rhinorrhea, congestion, sore throat, or otalgia. CARDIOVASCULAR: Denies chest pain, palpitations, or edema. RESPIRATORY: Denies cough or dyspnea. GASTROINTESTINAL: Denies abdominal pain, nausea, vomiting, or diarrhea. GENITOURINARY: Denies dysuria or hematuria. SKIN: Denies rash or itching. Reports bruising from other falls, reports large skin tear to left hand MUSCULOSKELETAL: Denies back pain, joint pain, or myalgia. NEUROLOGIC: Denies headache, numbness, reports mild, nonfocal weakness PMFSH Past Medical History Medical History BMI 31.0-31.9,adult BMI greater than 30 Body mass index (BMI) of 33.0 to 33.9 in adult BPH (benign prostatic hyperplasia) Cyst on ear Dyspnea Foot ulcer, right Hernia HTN (hypertension) Hyperlipidemia Hypokalemia Ischemic cardiomyopathy Low vitamin D level Myocardial infarction Pain in left foot Pain in right foot Right medial knee pain Sick sinus syndrome Surgical History Surgical History H/O hernia repair History of cardiac catheterization History of removal of cyst from ear Stented coronary artery Family History Family History Mother Family history of malignant neoplasm of kidney Cancer Father No problems noted. Sibling No problems noted. Social History Social History Smoking status: Never smoker Tobacco type: cigarettes Alcohol intake: former Substance use: never Substance use type: does not use Additional occupation/education comments: [employer]. Gender identity (if verbalized by the patient): Male Spiritual care concerns: No Exam Narrative: GENERAL: Awake, alert, conversant HEAD: Normocephalic, atraumatic. EYES: PERRLA and EOMI. ENT: Nares clear, no rhinorrhea or epistaxis. Mucous membranes moist. NECK: Supple. No midline cervical tenderness, no step-offs or deformities. CHEST: No respiratory distress, breathing even and non labored. Chest wall stable to anterior lateral compression. No ecchymosis. HEART: Regular rate, sinus rhythm ABDOMEN:Non distended, non tender Pelvis stable to anterior lateral compression. No midline thoracic or lumbar tenderness. EXTREMITIE
[2022-05-03 18:38] LABS: Basophils Percent Auto 0.3 % (0.2-1.2); Eosinophils Absolute Auto 0.1 K/mm3 (0-0.3); Eosinophils Percent Auto 0.7 % (0-4.4); Hematocrit 41.8 % (42.0-52.0); Hemoglobin 13.4 g/dL (14.0-18.0); Immature Granulocyte Absolute 0.12 K/mm3 (0.00-0.031); Immature Granulocyte Percent A 0.8 % (0-0.5); Lymphocytes Absolute Auto 2.41 K/mm3 (0.9-3.2); Lymphocytes Percent Auto 15.8 % (18.3-44.2); Mean Corpuscular HGB Conc 32.1 g/dl (32-36); Mean Corpuscular Volume 93.5 fl (80-100); Mean Platelet Volume 9.9 fl (7.4-10.4); Monocytes Percent Auto 12.8 % (2.6-8.5); Neutrophils Absolute Auto 10.6 K/mm3 (1.3-6.7); Neutrophils Percent Auto 69.6 % (45.5-73.1); Platelet Count Result 368 k/mm3 (150-375); Red Blood Count 4.47 M/mm3 (4.6-6.20); Red Cell Distribution Width 13.9 % (11.5-14.5); White Blood Count 15.2 K/mm3 (4.5-10.0)
[2022-05-03 18:50] LABS: Alanine Aminotransferase 28 U/L (6-50); Albumin Level 3.9 g/dL (3.5-5.1); Alkaline Phosphatase 193 U/L (38-126); Anion Gap 9 mmol/L (8-16); Aspartate Amino Transferase 55 U/L (17-59); Bilirubin,Total 0.7 mg/dL (0.2-1.3); Blood Urea Nitrogen 43 mg/dL (9-20); Calcium 9.1 mg/dL (8.4-10.2); Carbon Dioxide 38 mmol/L (22-30); Chloride 86 mmol/L (98-107); Estimated CRCL calculation 56 ml/min; Estimated Glomerular Filt Rate > 60; Glucose 141 mg/dL (65-110); Potassium 3.4 mmol/L (3.4-5.0); Sodium 133 mmol/L (137-145)
[2022-05-03] MEDS: TETANUS,DIPHTHERIA,AC PERTUSSIS ADULT (0.5 ML) BOOSTRIX IM (18:51)
[2022-05-03 19:24] VITALS: PULSE 87; PULSE 88; RESP 19; O2SAT 99
--- NOTE | 2022-05-03 19:34 | PC.NURSE ---
Pt to CT scan via stretcher at this time.
[2022-05-03 19:37] LABS: Appearance Urine Slightly Cloudy (Clear); Bilirubin Urine Negative (Negative); Color Urine Yellow (Yellow); Glucose Urine UA Negative (Negative); Ketones Urine Negative (Negative); Leukocyte Esterase Ur 3+ LEU/UL (Negative); Nitrate Urine Positive (Negative); Protein Urine 2+ mg/dL (Negative); Specific Grav Ur 1.015 (1.001-1.035); pH Urine 8.5 (5.0-9.0)
[2022-05-03 19:46] LABS: WBC Urine >75 /hpf
[2022-05-03 19:50] LABS: Add Urine Microscopic? YES; Blood Urine Trace-Intact (Negative)
[2022-05-03] MEDS: SODIUM CHLORIDE 0.9% IV 1,000 ML 999 ML IV CONT (20:12)
[2022-05-03 20:13] VITALS: BP 143/70; PULSE 84; RESP 19; O2SAT 97
[2022-05-03 22:02] VITALS: BP 147/70; PULSE 87; RESP 18; O2SAT 95
--- NOTE | 2022-05-03 22:05 | PM.IMHP ---
H&P: HPI History of Present Illness Date/Time: 05/03/22 22:05 Chief Complaint: fall Narrative: This is an 86-year-old male with past medical history significant for hypertension, ischemic cardiomyopathy, benign prostatic hyperplasia, sick sinus syndrome. Patient was brought to the emergency room for evaluation due to falling frequently according to the daughter who is at bedside total of 15 times over the last month or so explains it is unsafe for him to live on his on he has 2 sisters that are in her 80s that check on him every now and then. patient denies any pain at the present time no loss of consciousness, no fevers, no rigors, no chills, no pain or burning with urination, no cough, no sputum production, no dizziness, no lightheadedness. preliminary workup was significant for urinalysis with numerous WBCs present. patient is been admitted for further evaluation management and treatment. Review of Systems Review of Systems: Frequent falls Constitutional: Constitutional: Denies fever(s) and Reports frequent falls Eyes: Eyes: Denies change in vision ENT: Denies dysphagia, Denies vertigo, Denies dizziness and Denies odynophagia Cardiovascular: Cardiovascular: Denies chest pain, Denies syncope, Denies irregular heart rhythm, Denies lightheadedness, Denies palpitations and Denies dyspnea on exertion Respiratory: Respiratory: Denies cough, Denies dyspnea, Denies dyspnea on exertion and Denies wheezing Gastrointestinal: Gastrointestinal: Denies abdominal pain, Denies dyspepsia, Denies heartburn, Denies diarrhea, Denies nausea and Denies vomiting Genitourinary: Genitourinary: Denies dysuria Musculoskeletal: Musculoskeletal: Denies back pain, Denies myalgias, Denies arthralgias, Denies joint swelling and Reports muscle weakness Integumentary/Breasts: Skin/Breast: Denies rash Neurologic: Denies vertigo, Denies dizziness, Denies focal weakness and Denies Sensory deficit (Neuro) Psychiatric: Psychiatric: Reports no additional psychiatric complaints and Reports as per HPI Endocrine: Endocrine: Denies cold intolerance, Denies fatigue, Denies flushing, Denies heat intolerance, Denies polyphagia, Denies polydipsia and Denies palpitations Hematologic/Lymphatic: Hematologic/Lymphatic: Reports no additional hematologic/lymphatic complaints and Reports as per HPI Allergic/Immunologic: Allergic/Immunologic: Reports no additional allergic/immunologic complaints and Reports as per [facility] Past Medical History Medical History BMI 31.0-31.9,adult BMI greater than 30 Body mass index (BMI) of 33.0 to 33.9 in adult BPH (benign prostatic hyperplasia) Cyst on ear Dyspnea Foot ulcer, right Hernia HTN (hypertension) Hyperlipidemia Hypokalemia Ischemic cardiomyopathy Low vitamin D level Myocardial infarction Pain in left foot Pain in right foot Right medial knee pain Sick sinus syndrome Surgical History Surgical History H/O hernia repair History of cardiac catheterization History of removal of cyst from ear Stented coronary artery Family History Family History Mother Family history of malignant neoplasm of kidney Cancer Father No problems noted. Sibling No problems noted. Social History Social History Years smoked: 40 Smoking status: Former smoker Tobacco type: cigarettes Alcohol intake: former Substance use: never Substance use type: does not use Additional occupation/education comments: [employer]. Gender identity (if verbalized by the patient): Male Spiritual care concerns: No Meds Home Medications and Allergies Home Medications Medication Instructions Recorded Confirmed Type apixaban 2.5 mg tablet (Eliquis) 2.5 mg PO BID #60 tabs
[2022-05-03 23:29] VITALS: BP 130/81; PULSE 90; RESP 21; O2SAT 93
--- NOTE | 2022-05-03 23:56 | ADMGEN ---
This patient, Ernesto Su, was admitted to Medical Room [facility]- at 2340. Patient/family oriented to hospital policies and general routines including ID bracelet, bed and alarms, visiting hours, pain management, procedures, bathroom and other care routines, personal items, smoking policy, room service/diet, and visiting hours. Information on how to activate the Rapid Response Team has been discussed. Patient/Family are encouraged to report perceived risks to care and to ask questions if they do not understand what they are told or what they should do.
[2022-05-04 00:43] VITALS: BMI 32.8
[2022-05-04] MEDS: SODIUM CHLORIDE 0.9% IV 1,000 ML 75 ML IV CONT (05:33)
[2022-05-04 06:00] VITALS: BP 119/77; PULSE 81; RESP 16; TEMP 37.1; O2SAT 98
[2022-05-04 06:43] LABS: Basophils Percent Auto 0.2 % (0.2-1.2); Eosinophils Absolute Auto 0.2 K/mm3 (0-0.3); Eosinophils Percent Auto 1.2 % (0-4.4); Hemoglobin 11.5 g/dL (14.0-18.0); Immature Granulocyte Absolute 0.07 K/mm3 (0.00-0.031); Immature Granulocyte Percent A 0.5 % (0-0.5); Lymphocytes Absolute Auto 2.35 K/mm3 (0.9-3.2); Lymphocytes Percent Auto 18.3 % (18.3-44.2); Mean Corpuscular HGB Conc 31.9 g/dl (32-36); Mean Corpuscular Hemoglobin 29.7 pg (26-34); Monocytes Absolute Auto 1.4 K/mm3 (0.1-0.6); Monocytes Percent Auto 10.9 % (2.6-8.5); Neutrophils Absolute Auto 8.8 K/mm3 (1.3-6.7); Neutrophils Percent Auto 68.9 % (45.5-73.1); Platelet Count Result 310 k/mm3 (150-375); Red Blood Count 3.87 M/mm3 (4.6-6.20); Red Cell Distribution Width 13.9 % (11.5-14.5); White Blood Count 12.8 K/mm3 (4.5-10.0)
[2022-05-04 06:59] LABS: Anion Gap 7 mmol/L (8-16); Blood Urea Nitrogen 33 mg/dL (9-20); Calcium 8.6 mg/dL (8.4-10.2); Carbon Dioxide 37 mmol/L (22-30); Chloride 89 mmol/L (98-107); Estimated CRCL calculation 75 ml/min; Estimated Glomerular Filt Rate > 60; Glucose 121 mg/dL (65-110); Potassium 2.5 mmol/L (3.4-5.0); Sodium 133 mmol/L (137-145)
[2022-05-04] MEDS: ASPIRIN 81 MG CHEWABLE TABLET PO (08:47)
[2022-05-04] MEDS: POTASSIUM CHLORIDE 20 MEQ TABLET 40 MEQ PO (08:47)
[2022-05-04 08:48] VITALS: PULSE 79
[2022-05-04] MEDS: FINASTERIDE 5 MG TABLET PO (08:48)
[2022-05-04] MEDS: carvediloL 3.125 MG TABLET PO ×2 (08:48→16:52)
[2022-05-04] MEDS: CHOLECALCIFEROL 1,000 UNITS TABLET 5000 UNITS PO (08:49)
[2022-05-04] MEDS: APIXABAN 2.5 MG TABLET PO ×2 (08:49→20:18)
[2022-05-04] MEDS: PREGABALIN (*CRX) 75 MG CAPSULE PO ×2 (08:51→16:52)
[2022-05-04] MEDS: KCL 40 MEQ/0.9% SOD CHL 1,000 ML 100 ML IV CONT ×2 (09:59→23:33)
[2022-05-04 10:21] LABS: Magnesium 1.7 mg/dL (1.6-2.3)
--- NOTE | 2022-05-04 10:27 | PM.IMPN ---
Progress Note: A&P Assessment and Plan (1) Fall: Qualifiers: Encounter type: sequela Qualified Code(s): W19.XXXS - Unspecified fall, sequela Code(s): W19.XXXA - Unspecified fall, initial encounter Status: Resolved Assessment and Plan: Patient admitted for evaluation after a fall. He was appropriately started a on fall precautions. PT call OT consults have been ordered. Reviewed med rec, patient's pregabalin may be causing some instability. Will decrease dose to 75 daily only. Check B12/folate. Given patient's diuretic regimen along with BPH meds and antihypertensives, will check orthostatics. Given patient's intermittent neuropathic symptoms, consider CT of cervical spine and lumbar spine. 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 Lyrica switch to 75 daily given gait instability (4) Essential (primary) hypertension: Code(s): I10 - Essential (primary) hypertension Status: Chronic Assessment and Plan: Continue patient's home meds (5) Sick sinus syndrome: Code(s): I49.5 - Sick sinus syndrome Status: Acute Assessment and Plan: Status post pacemaker (6) Stage 3 chronic kidney disease: Qualifiers: Chronic kidney disease stage 3 subtype: stage 3a (GFR 45-59) Qualified Code(s): N18.31 - Chronic kidney disease, stage 3a Code(s): N18.3 - Chronic kidney disease, stage 3 (moderate) Status: Chronic Assessment and Plan: BUN and creatinine at patient's baseline Continue to monitor. (7) Ischemic cardiomyopathy: Code(s): I25.5 - Ischemic cardiomyopathy Status: Acute Assessment and Plan: Known CAD status post PCI to the LAD 2013 with staged PCI to the left circ, known high-grade disease and RPDA. On aspirin and statin. Patient on Lasix 40 and metolazone 2.5 daily, metolazone may be too aggressive for patient. Will hold metolazone a start Lasix b.i.d. Patient appears euvolemic (8) BPH associated with nocturia: Code(s): N40.1 - Benign prostatic hyperplasia with lower urinary tract symptoms; R35.1 - Nocturia Status: Chronic Assessment and Plan: Continue home meds Subjective Date/time seen: 05/04/22 10:27 Greater than 30 minutes spent reviewing chart, evaluating, treating, counseling patient. No acute events. Patient reports he has had intermittent his numbness/tingling with burning pain in bilateral lower extremities for the last 4 months. Reports intermittent numbness/tingling in left upper extremity. Review of Systems Review of Systems: Ten point review of system obtained negative unless otherwise specified per subjective Exam Const: General: comfortable and no acute distress HENMT: Mouth: Yes moist mucous membranes Eyes: General: appearance normal, both eyes and all related structures Pupils: Equal, round and reactive pupils present Neck: Neck: no JVD Resp: Effort & Inspection: normal respiratory effort Auscultation: clear to auscultation bilaterally Cardio: Rate: regular rate Rhythm: regular rhythm GI: GI Palp: Yes Soft to palpation Auscultation: normal bowel sounds Other: nondistended, nontender Skin: General skin exam: normal color and no rashes or lesions noted Neuro: Speech: normal speech Motor exam (neuro): 5/5 motor strength present throughout Sensory Exam: normal sensation Extrem: General: normal to inspection Other: warm LEs Psych: Mental Status: mental status grossly normal Affect: normal affect Objective Data Vital Signs Vital Signs: Vital Signs - 24 hr 05/03/22 18:12 05/03/22 19:24 05/03/22 19:24 Temperature 98.0 F Pul
[2022-05-04 13:08] VITALS: BMI 32.8
[2022-05-04 14:00] VITALS: BP 139/72; PULSE 92; RESP 16; TEMP 36.7; O2SAT 100
[2022-05-04 16:52] VITALS: PULSE 82
[2022-05-04] MEDS: FUROSEMIDE 40 MG TABLET PO (16:52)
[2022-05-04 19:09] VITALS: BP 171/90; PULSE 84; RESP 20; TEMP 36.7; O2SAT 96
[2022-05-05 04:28] VITALS: BP 144/61; PULSE 84; RESP 20; TEMP 36.5; O2SAT 97
[2022-05-05 06:45] LABS: Hematocrit 36.4 % (42.0-52.0); Hemoglobin 11.8 g/dL (14.0-18.0); Mean Corpuscular HGB Conc 32.4 g/dl (32-36); Mean Corpuscular Hemoglobin 30.3 pg (26-34); Mean Corpuscular Volume 93.6 fl (80-100); Mean Platelet Volume 9.9 fl (7.4-10.4); Platelet Count Result 331 k/mm3 (150-375); Red Blood Count 3.89 M/mm3 (4.6-6.20); Red Cell Distribution Width 14.1 % (11.5-14.5)
[2022-05-05 07:14] LABS: Anion Gap 7 mmol/L (8-16); Blood Urea Nitrogen 26 mg/dL (9-20); Calcium 8.6 mg/dL (8.4-10.2); Carbon Dioxide 36 mmol/L (22-30); Chloride 92 mmol/L (98-107); Estimated CRCL calculation 67 ml/min; Estimated Glomerular Filt Rate > 60; Glucose 117 mg/dL (65-110); Potassium 3.1 mmol/L (3.4-5.0); Sodium 135 mmol/L (137-145)
[2022-05-05 07:20] LABS: Iron 29 ug/dL (49-181)
[2022-05-05 07:30] LABS: Percent Iron Saturation 16 % (20-50)
[2022-05-05 08:18] LABS: Folic Acid 4.2 ng/mL (2.76->20)
[2022-05-05 08:33] VITALS: PULSE 84
[2022-05-05] MEDS: FINASTERIDE 5 MG TABLET PO (08:33)
[2022-05-05] MEDS: CHOLECALCIFEROL 1,000 UNITS TABLET 5000 UNITS PO (08:33)
[2022-05-05] MEDS: ASPIRIN 81 MG CHEWABLE TABLET PO (08:33)
[2022-05-05] MEDS: FUROSEMIDE 40 MG TABLET PO ×2 (08:33→16:50)
[2022-05-05] MEDS: carvediloL 3.125 MG TABLET PO ×2 (08:33→16:50)
[2022-05-05] MEDS: APIXABAN 2.5 MG TABLET PO ×2 (08:33→20:41)
[2022-05-05] MEDS: PREGABALIN (*CRX) 75 MG CAPSULE PO ×2 (08:34→16:50)
[2022-05-05] MEDS: KCL 40 MEQ/0.9% SOD CHL 1,000 ML 100 ML IV CONT ×2 (08:39→19:07)
[2022-05-05 14:00] VITALS: BP 141/75; PULSE 83; RESP 16; TEMP 36.4; O2SAT 98
[2022-05-05 16:50] VITALS: PULSE 83
--- NOTE | 2022-05-05 17:12 | PM.IMPN ---
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: Code(s): G62.89 - Other specified polyneuropathies Status: Chronic (4) Essential (primary) hypertension: Code(s): I10 - Essential (primary) hypertension Status: Chronic (5) Sick sinus syndrome: Code(s): I49.5 - Sick sinus syndrome Status: Acute (6) Stage 3 chronic kidney disease: Qualifiers: Chronic kidney disease stage 3 subtype: stage 3a (GFR 45-59) Qualified Code(s): N18.31 - Chronic kidney disease, stage 3a Code(s): N18.3 - Chronic kidney disease, stage 3 (moderate) Status: Chronic (7) Ischemic cardiomyopathy: Code(s): I25.5 - Ischemic cardiomyopathy Status: Acute (8) BPH associated with nocturia: Code(s): N40.1 - Benign prostatic hyperplasia with lower urinary tract symptoms; R35.1 - Nocturia Status: Chronic (9) Frequent falls: Code(s): R29.6 - Repeated falls Status: Acute (10) PAD (peripheral artery disease): Code(s): I73.9 - Peripheral vascular disease, unspecified Status: Chronic (11) COPD (chronic obstructive pulmonary disease): Qualifiers: COPD type: emphysema Code(s): J44.9 - Chronic obstructive pulmonary disease, unspecified Status: Chronic (12) Pacemaker: Code(s): Z95.0 - Presence of cardiac pacemaker Status: Acute (13) Neural foraminal stenosis of lumbosacral spine: Code(s): M99.83 - Other biomechanical lesions of lumbar region Status: Chronic (14) Metabolic encephalopathy: Code(s): G93.41 - Metabolic encephalopathy Status: Acute Plan 05/03/22 ?admit to regular medical floor ?started on Rocephin ?cultures in progress ?supportive care ?PT OT consult ?fall precautions ?weakness likely secondary to acute illness ?continue home meds ?BUN and creatinine at patient's baseline ?spinal stenosis likely contributing to recurrent falls continue to monitor ?supportive care 05/04/22 Patient admitted for evaluation after a fall.? He was appropriately started a on fall precautions.? PT call OT consults have been ordered.? Reviewed med rec, patient's pregabalin may be causing some instability.? Will decrease dose to 75 daily only. Check B12/folate. Given patient's diuretic regimen along with BPH meds and antihypertensives, will check orthostatics.? Given patient's intermittent neuropathic symptoms, consider CT of cervical spine and lumbar spine. Continue Rocephin for now, urine culture pending Continue patient's home medsOn Eliquis and aspirin.? Lyrica switch to 75 daily given gait instability Continue patient's home meds Status post pacemaker BUN and creatinine at patient's baseline Continue to monitor. Known CAD status post PCI to the LAD 2013 with staged PCI to the left circ, known high-grade disease and RPDA.? On aspirin and statin.? Patient on Lasix 40 and metolazone 2.5 daily, metolazone may be too aggressive for patient.? Will hold metolazone a start Lasix b.i.d.? Patient appears euvolemic 05/05/22 pt sitting up in bed feeding himself oriented to self gram negative krunal UTI on Rocephin no fever, BP stable PT/OT following cont current care Subjective Date/time seen: 05/05/22 17:12 pt sitting up in bed feeding himself oriented to self he tells me Johnny is president and he is doesn't know where he is but is able to tell me he lives alone and has a daughter and 2 sisters that check on him Objective Data Vital Signs Vital Signs: Vital Signs - 24 hr 05/04/22 19:09 05/05/22 04:28 05/05/22 08:33 Temperature 98.1 F 97.7 F Pulse Rate 84 84 8
[2022-05-05 19:26] VITALS: BP 140/65; PULSE 80; RESP 20; TEMP 36.8; O2SAT 95
[2022-05-06 04:48] VITALS: BP 118/82; PULSE 88; RESP 20; TEMP 36.6; O2SAT 96
[2022-05-06] MEDS: KCL 40 MEQ/0.9% SOD CHL 1,000 ML 100 ML IV CONT ×2 (05:36→15:45)
[2022-05-06] MEDS: POTASSIUM CHLORIDE 20 MEQ PACKET (FOR LIQUID) 40 MEQ PO ×2 (08:14→16:05)
[2022-05-06] MEDS: ASPIRIN 81 MG CHEWABLE TABLET PO (08:14)
[2022-05-06] MEDS: CHOLECALCIFEROL 1,000 UNITS TABLET 5000 UNITS PO (08:14)
[2022-05-06 08:15] VITALS: PULSE 72
[2022-05-06] MEDS: FUROSEMIDE 40 MG TABLET PO ×2 (08:15→16:06)
[2022-05-06] MEDS: carvediloL 3.125 MG TABLET PO ×2 (08:15→16:05)
[2022-05-06] MEDS: PREGABALIN (*CRX) 75 MG CAPSULE PO ×2 (08:15→16:06)
[2022-05-06] MEDS: FINASTERIDE 5 MG TABLET PO (08:15)
[2022-05-06] MEDS: APIXABAN 2.5 MG TABLET PO ×2 (08:15→21:23)
[2022-05-06 08:24] LABS: Basophils Absolute Auto 0.1 K/mm3 (0.0-0.1); Basophils Percent Auto 0.3 % (0.2-1.2); Eosinophils Absolute Auto 0.1 K/mm3 (0-0.3); Eosinophils Percent Auto 0.8 % (0-4.4); Hematocrit 40.5 % (42.0-52.0); Hemoglobin 12.9 g/dL (14.0-18.0); Immature Granulocyte Absolute 0.09 K/mm3 (0.00-0.031); Immature Granulocyte Percent A 0.5 % (0-0.5); Lymphocytes Absolute Auto 2.21 K/mm3 (0.9-3.2); Lymphocytes Percent Auto 13.4 % (18.3-44.2); Mean Corpuscular HGB Conc 31.9 g/dl (32-36); Mean Corpuscular Volume 94.2 fl (80-100); Mean Platelet Volume 9.6 fl (7.4-10.4); Monocytes Absolute Auto 1.7 K/mm3 (0.1-0.6); Monocytes Percent Auto 10.1 % (2.6-8.5); Neutrophils Absolute Auto 12.3 K/mm3 (1.3-6.7); Neutrophils Percent Auto 74.9 % (45.5-73.1); Platelet Count Result 377 k/mm3 (150-375); Red Cell Distribution Width 14.1 % (11.5-14.5); White Blood Count 16.5 K/mm3 (4.5-10.0)
[2022-05-06 08:25] VITALS: PULSE 72; RESP 20; O2SAT 96
--- NOTE | 2022-05-06 08:27 | PC.NURSE ---
Pt is weaker today than previously. Pt states to OT he feels wore out. Pt using [employer] for assistance.
[2022-05-06 08:34] LABS: Anion Gap 9 mmol/L (8-16); Blood Urea Nitrogen 22 mg/dL (9-20); Calcium 8.7 mg/dL (8.4-10.2); Carbon Dioxide 34 mmol/L (22-30); Chloride 90 mmol/L (98-107); Estimated CRCL calculation 67 ml/min; Estimated Glomerular Filt Rate > 60; Glucose 125 mg/dL (65-110); Magnesium 1.4 mg/dL (1.6-2.3); Potassium 3.5 mmol/L (3.4-5.0); Sodium 133 mmol/L (137-145)
[2022-05-06 14:00] VITALS: BP 130/73; PULSE 90; RESP 18; TEMP 36.4; O2SAT 99
[2022-05-06 16:05] VITALS: PULSE 91
--- NOTE | 2022-05-06 17:23 | PM.IMPN ---
Progress Note: A&P Assessment and Plan (1) Acute UTI: Code(s): N39.0 - Urinary tract infection, site not specified Status: Acute (2) Metabolic encephalopathy: Code(s): G93.41 - Metabolic encephalopathy Status: Acute (3) Essential (primary) hypertension: Code(s): I10 - Essential (primary) hypertension Status: Chronic (4) Stage 3 chronic kidney disease: Qualifiers: Chronic kidney disease stage 3 subtype: stage 3a (GFR 45-59) Qualified Code(s): N18.31 - Chronic kidney disease, stage 3a Code(s): N18.3 - Chronic kidney disease, stage 3 (moderate) Status: Chronic (5) Ischemic cardiomyopathy: Code(s): I25.5 - Ischemic cardiomyopathy Status: Acute (6) BPH associated with nocturia: Code(s): N40.1 - Benign prostatic hyperplasia with lower urinary tract symptoms; R35.1 - Nocturia Status: Chronic (7) Frequent falls: Code(s): R29.6 - Repeated falls Status: Acute (8) PAD (peripheral artery disease): Code(s): I73.9 - Peripheral vascular disease, unspecified Status: Chronic (9) COPD (chronic obstructive pulmonary disease): Qualifiers: COPD type: emphysema Code(s): J44.9 - Chronic obstructive pulmonary disease, unspecified Status: Chronic (10) Sick sinus syndrome: Code(s): I49.5 - Sick sinus syndrome Status: Acute (11) Pacemaker: Code(s): Z95.0 - Presence of cardiac pacemaker Status: Acute (12) Neural foraminal stenosis of lumbosacral spine: Code(s): M99.83 - Other biomechanical lesions of lumbar region Status: Chronic (13) 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 He was appropriately started a on fall precautions.? PT call OT consults have been ordered.? Reviewed med rec, patient's pregabalin may be causing some instability.? Will decrease dose to 75 daily only. Check B12/folate. Given patient's diuretic regimen along with BPH meds and antihypertensives, will check orthostatics.? Given patient's intermittent neuropathic symptoms, consider CT of cervical spine and lumbar spine. Continue Rocephin for now, urine culture pending Continue patient's home medsOn Eliquis and aspirin.? Lyrica switch to 75 daily given gait instability Continue patient's home meds Status post pacemaker BUN and creatinine at patient's baseline Continue to monitor. Known CAD status post PCI to the LAD 2013 with staged PCI to the left circ, known high-grade disease and RPDA.? On aspirin and statin.? Patient on Lasix 40 and metolazone 2.5 daily, metolazone may be too aggressive for patient.? Will hold metolazone a start Lasix b.i.d.? Patient appears euvolemic 05/05/22 pt sitting up in bed feeding himself oriented to self gram negative krunal UTI on Rocephin no fever, BP stable PT/OT following cont current care 05/06/22 persistent leukocytosis VS remain stable culture pending supportive care PT/OT Subjective Date/time seen: 05/06/22 17:23 Exam Narrative: GEN: NAD, AAOx2, cooperative HEENT: NCAT, MMM, EOMI Neck: no JVD Heart: S1S2 RRR Lungs: CTA B/l Abd: soft, NT, ND, bowel sounds normoactive Ext: moves all, no cyanosis, no clubbing Neuro: CN intact no focal deficits Psych: mood and affect congruent Objective Data Vital Signs Vital Signs: Vital Signs - 24 hr 05/05/22 19:26 05/06/22 04:48 05/06/22 08:15 Temperature 98.3 F 98 F Pulse Rate 80 88 72 Respiratory Rate 20 20 Blood Press
[2022-05-06 19:58] VITALS: BP 151/76; PULSE 84; RESP 18; TEMP 36.1; O2SAT 97
[2022-05-07] MEDS: KCL 40 MEQ/0.9% SOD CHL 1,000 ML 100 ML IV CONT ×2 (02:07→08:51)
[2022-05-07 04:39] VITALS: BP 151/86; PULSE 82; RESP 16; TEMP 36.1; O2SAT 97
[2022-05-07 08:00] VITALS: O2SAT 97
[2022-05-07] MEDS: FLUTICASONE PROPIONATE 0.05% NA SPR 16 GM BTL (*BKC) 2 SPRAY NASAL (08:51)
[2022-05-07 08:52] VITALS: PULSE 82
[2022-05-07] MEDS: APIXABAN 2.5 MG TABLET PO ×2 (08:52→20:45)
[2022-05-07] MEDS: carvediloL 3.125 MG TABLET PO ×2 (08:52→17:06)
[2022-05-07] MEDS: ASPIRIN 81 MG CHEWABLE TABLET PO (08:52)
[2022-05-07] MEDS: CHOLECALCIFEROL 1,000 UNITS TABLET 5000 UNITS PO (08:53)
[2022-05-07] MEDS: FUROSEMIDE 40 MG TABLET PO ×2 (08:53→17:06)
[2022-05-07] MEDS: FINASTERIDE 5 MG TABLET PO (08:53)
[2022-05-07] MEDS: PREGABALIN (*CRX) 75 MG CAPSULE PO ×2 (08:55→17:06)
--- NOTE | 2022-05-07 09:38 | PM.IMPN ---
Progress Note: A&P Assessment and Plan (1) Acute UTI: Code(s): N39.0 - Urinary tract infection, site not specified Status: Acute (2) Metabolic encephalopathy: Code(s): G93.41 - Metabolic encephalopathy Status: Acute (3) Essential (primary) hypertension: Code(s): I10 - Essential (primary) hypertension Status: Chronic (4) Stage 3 chronic kidney disease: Qualifiers: Chronic kidney disease stage 3 subtype: stage 3a (GFR 45-59) Qualified Code(s): N18.31 - Chronic kidney disease, stage 3a Code(s): N18.3 - Chronic kidney disease, stage 3 (moderate) Status: Chronic (5) Ischemic cardiomyopathy: Code(s): I25.5 - Ischemic cardiomyopathy Status: Acute (6) BPH associated with nocturia: Code(s): N40.1 - Benign prostatic hyperplasia with lower urinary tract symptoms; R35.1 - Nocturia Status: Chronic (7) Frequent falls: Code(s): R29.6 - Repeated falls Status: Acute (8) PAD (peripheral artery disease): Code(s): I73.9 - Peripheral vascular disease, unspecified Status: Chronic (9) COPD (chronic obstructive pulmonary disease): Qualifiers: COPD type: emphysema Code(s): J44.9 - Chronic obstructive pulmonary disease, unspecified Status: Chronic (10) Sick sinus syndrome: Code(s): I49.5 - Sick sinus syndrome Status: Acute (11) Pacemaker: Code(s): Z95.0 - Presence of cardiac pacemaker Status: Acute (12) Neural foraminal stenosis of lumbosacral spine: Code(s): M99.83 - Other biomechanical lesions of lumbar region Status: Chronic (13) 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 He was appropriately started a on fall precautions.? PT call OT consults have been ordered.? Reviewed med rec, patient's pregabalin may be causing some instability.? Will decrease dose to 75 daily only. Check B12/folate. Given patient's diuretic regimen along with BPH meds and antihypertensives, will check orthostatics.? Given patient's intermittent neuropathic symptoms, consider CT of cervical spine and lumbar spine. Continue Rocephin for now, urine culture pending Continue patient's home medsOn Eliquis and aspirin.? Lyrica switch to 75 daily given gait instability Continue patient's home meds Status post pacemaker BUN and creatinine at patient's baseline Continue to monitor. Known CAD status post PCI to the LAD 2013 with staged PCI to the left circ, known high-grade disease and RPDA.? On aspirin and statin.? Patient on Lasix 40 and metolazone 2.5 daily, metolazone may be too aggressive for patient.? Will hold metolazone a start Lasix b.i.d.? Patient appears euvolemic 05/05/22 pt sitting up in bed feeding himself oriented to self gram negative krunal UTI on Rocephin no fever, BP stable PT/OT following cont current care 05/06/22 persistent leukocytosis VS remain stable culture pending supportive care PT/OT 05/07/22 Proteus penneri Rocephin resistant -> Levaquin cont current care lasix 20mg IV x 1 incentive spirometry dc IVFs dc in 24-48 hours Subjective Date/time seen: 05/07/22 09:38 no overnight events, daughter bedside all questions answered, requests incentive spirometer Review of Systems Review of Systems: All systems reviewed & are unremarkable except as noted in HPI and below Exam Narrative: GEN: increased work of breathing, AAOx2, cooperative HEENT: NCAT, MMM, EOMI Neck: no JVD Heart: S1S2
[2022-05-07] MEDS: levoFLOXacin 500 MG/D5W 100 ML 500 MG/100 ML BAG 100 MG IVPB (10:16)
[2022-05-07] MEDS: FUROSEMIDE INJ 40 MG/4 ML VIAL IV PUSH (13:55)
[2022-05-07 14:00] VITALS: BP 131/74; PULSE 89; RESP 16; TEMP 37.1; O2SAT 98
[2022-05-07 17:06] VITALS: PULSE 89
[2022-05-07 21:57] VITALS: BP 132/67; PULSE 92; RESP 18; TEMP 36.3; O2SAT 96
[2022-05-08 05:44] VITALS: BP 124/70; PULSE 76; RESP 18; TEMP 36.4; O2SAT 94
[2022-05-08 06:21] LABS: Hematocrit 35.1 % (42.0-52.0); Hemoglobin 11.2 g/dL (14.0-18.0); Mean Corpuscular HGB Conc 31.9 g/dl (32-36); Mean Corpuscular Hemoglobin 29.7 pg (26-34); Mean Corpuscular Volume 93.1 fl (80-100); Platelet Count Result 314 k/mm3 (150-375); Red Blood Count 3.77 M/mm3 (4.6-6.20); Red Cell Distribution Width 13.7 % (11.5-14.5); White Blood Count 14.2 K/mm3 (4.5-10.0)
[2022-05-08 06:39] LABS: Anion Gap 9 mmol/L (8-16); Blood Urea Nitrogen 24 mg/dL (9-20); Calcium 7.9 mg/dL (8.4-10.2); Carbon Dioxide 35 mmol/L (22-30); Chloride 87 mmol/L (98-107); Estimated CRCL calculation 61 ml/min; Estimated Glomerular Filt Rate > 60; Glucose 113 mg/dL (65-110); Magnesium 1.2 mg/dL (1.6-2.3); Potassium 2.7 mmol/L (3.4-5.0); Sodium 131 mmol/L (137-145)
--- NOTE | 2022-05-08 06:43 | PC.NURSE ---
Attempt to report critical test result to Hospitalist through direct number and doctors lounge no response. If no call back within 10 minutes will attempt call back.
--- NOTE | 2022-05-08 06:57 | PC.NURSE ---
2ND ATTEMPT TO REPORT CRITICAL RESULTS. NO RESPONSE.
[2022-05-08 07:45] VITALS: O2SAT 96
[2022-05-08] MEDS: levoFLOXacin 500 MG/D5W 100 ML 500 MG/100 ML BAG 100 MG IVPB (08:20)
[2022-05-08 08:21] VITALS: PULSE 76
[2022-05-08] MEDS: FLUTICASONE PROPIONATE 0.05% NA SPR 16 GM BTL (*BKC) 2 SPRAY NASAL (08:21)
[2022-05-08] MEDS: ASPIRIN 81 MG CHEWABLE TABLET PO (08:21)
[2022-05-08] MEDS: CHOLECALCIFEROL 1,000 UNITS TABLET 5000 UNITS PO (08:21)
[2022-05-08] MEDS: FUROSEMIDE 40 MG TABLET PO ×2 (08:21→16:51)
[2022-05-08] MEDS: carvediloL 3.125 MG TABLET PO ×2 (08:21→16:51)
[2022-05-08] MEDS: APIXABAN 2.5 MG TABLET PO ×2 (08:22→20:27)
[2022-05-08] MEDS: POTASSIUM CHLORIDE 20 MEQ PACKET (FOR LIQUID) 40 MEQ PO ×2 (08:22→16:51)
[2022-05-08] MEDS: FINASTERIDE 5 MG TABLET PO (08:22)
[2022-05-08] MEDS: PREGABALIN (*CRX) 75 MG CAPSULE PO ×2 (08:22→16:51)
--- NOTE | 2022-05-08 09:45 | PM.IMPN ---
Progress Note: A&P Assessment and Plan (1) Acute UTI: Code(s): N39.0 - Urinary tract infection, site not specified Status: Acute (2) Metabolic encephalopathy: Code(s): G93.41 - Metabolic encephalopathy Status: Acute (3) Essential (primary) hypertension: Code(s): I10 - Essential (primary) hypertension Status: Chronic (4) Stage 3 chronic kidney disease: Qualifiers: Chronic kidney disease stage 3 subtype: stage 3a (GFR 45-59) Qualified Code(s): N18.31 - Chronic kidney disease, stage 3a Code(s): N18.3 - Chronic kidney disease, stage 3 (moderate) Status: Chronic (5) Ischemic cardiomyopathy: Code(s): I25.5 - Ischemic cardiomyopathy Status: Acute (6) BPH associated with nocturia: Code(s): N40.1 - Benign prostatic hyperplasia with lower urinary tract symptoms; R35.1 - Nocturia Status: Chronic (7) Frequent falls: Code(s): R29.6 - Repeated falls Status: Acute (8) PAD (peripheral artery disease): Code(s): I73.9 - Peripheral vascular disease, unspecified Status: Chronic (9) COPD (chronic obstructive pulmonary disease): Qualifiers: COPD type: emphysema Code(s): J44.9 - Chronic obstructive pulmonary disease, unspecified Status: Chronic (10) Sick sinus syndrome: Code(s): I49.5 - Sick sinus syndrome Status: Acute (11) Pacemaker: Code(s): Z95.0 - Presence of cardiac pacemaker Status: Acute (12) Neural foraminal stenosis of lumbosacral spine: Code(s): M99.83 - Other biomechanical lesions of lumbar region Status: Chronic (13) 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 He was appropriately started a on fall precautions.? PT call OT consults have been ordered.? Reviewed med rec, patient's pregabalin may be causing some instability.? Will decrease dose to 75 daily only. Check B12/folate. Given patient's diuretic regimen along with BPH meds and antihypertensives, will check orthostatics.? Given patient's intermittent neuropathic symptoms, consider CT of cervical spine and lumbar spine. Continue Rocephin for now, urine culture pending Continue patient's home medsOn Eliquis and aspirin.? Lyrica switch to 75 daily given gait instability Continue patient's home meds Status post pacemaker BUN and creatinine at patient's baseline Continue to monitor. Known CAD status post PCI to the LAD 2013 with staged PCI to the left circ, known high-grade disease and RPDA.? On aspirin and statin.? Patient on Lasix 40 and metolazone 2.5 daily, metolazone may be too aggressive for patient.? Will hold metolazone a start Lasix b.i.d.? Patient appears euvolemic 05/05/22 pt sitting up in bed feeding himself oriented to self gram negative krunal UTI on Rocephin no fever, BP stable PT/OT following cont current care 05/06/22 persistent leukocytosis VS remain stable culture pending supportive care PT/OT 05/07/22 Proteus penneri Rocephin resistant -> Levaquin cont current care lasix 20mg IV x 1 incentive spirometry dc IVFs dc in 24-48 hours 05/08/22 cont levaquin cont lasix 40bid po monitor sodium cont incentive spirometry anticipate dc to SNF tomorrow Subjective Date/time seen: 05/08/22 09:45 pt doing ok no complaints at time of my exam Review of Systems Review of Systems: All systems reviewed & are unremarkable except as noted in HPI and below Exam Narrative: GEN: NAD, AAOx3, cooperative
[2022-05-08 14:00] VITALS: BP 126/80; PULSE 84; RESP 16; TEMP 35.8; O2SAT 96
[2022-05-08 16:51] VITALS: PULSE 84
[2022-05-08] MEDS: MAGNESIUM SULF 2 GM/WATER 50ML 2 GM/50 ML BAG IVPB (16:53)
[2022-05-08 19:31] VITALS: BP 126/67; PULSE 80; RESP 20; TEMP 36.4; O2SAT 96
[2022-05-09 05:53] VITALS: BP 134/82; PULSE 79; RESP 18; TEMP 36.9; O2SAT 96
[2022-05-09 07:36] VITALS: O2SAT 96
[2022-05-09 08:23] VITALS: PULSE 79
[2022-05-09] MEDS: ASPIRIN 81 MG CHEWABLE TABLET PO (08:23)
[2022-05-09] MEDS: FINASTERIDE 5 MG TABLET PO (08:23)
[2022-05-09] MEDS: ATORVASTATIN 40 MG TABLET PO (08:23)
[2022-05-09] MEDS: CHOLECALCIFEROL 1,000 UNITS TABLET 5000 UNITS PO (08:23)
[2022-05-09] MEDS: FUROSEMIDE 40 MG TABLET PO (08:23)
[2022-05-09] MEDS: APIXABAN 2.5 MG TABLET PO ×2 (08:23→19:48)
[2022-05-09] MEDS: carvediloL 3.125 MG TABLET PO ×2 (08:23→16:47)
[2022-05-09] MEDS: FLUTICASONE PROPIONATE 0.05% NA SPR 16 GM BTL (*BKC) 2 SPRAY NASAL (08:23)
[2022-05-09] MEDS: levoFLOXacin 500 MG/D5W 100 ML 500 MG/100 ML BAG 100 MG IVPB (08:49)
[2022-05-09] MEDS: PREGABALIN (*CRX) 75 MG CAPSULE PO ×2 (08:50→16:47)
[2022-05-09 12:48] LABS: Basophils Percent Auto 0.1 % (0.2-1.2); Eosinophils Absolute Auto 0.1 K/mm3 (0-0.3); Eosinophils Percent Auto 0.6 % (0-4.4); Hematocrit 38.6 % (42.0-52.0); Hemoglobin 12.6 g/dL (14.0-18.0); Immature Granulocyte Percent A 0.7 % (0-0.5); Lymphocytes Percent Auto 11.7 % (18.3-44.2); Mean Corpuscular HGB Conc 32.6 g/dl (32-36); Mean Corpuscular Hemoglobin 30.1 pg (26-34); Mean Corpuscular Volume 92.3 fl (80-100); Mean Platelet Volume 9.8 fl (7.4-10.4); Monocytes Absolute Auto 1.7 K/mm3 (0.1-0.6); Monocytes Percent Auto 10.8 % (2.6-8.5); Neutrophils Absolute Auto 11.7 K/mm3 (1.3-6.7); Neutrophils Percent Auto 76.1 % (45.5-73.1); Platelet Count Result 383 k/mm3 (150-375); Red Blood Count 4.18 M/mm3 (4.6-6.20); Red Cell Distribution Width 13.5 % (11.5-14.5); White Blood Count 15.4 K/mm3 (4.5-10.0)
[2022-05-09 12:59] LABS: Anion Gap 5 mmol/L (8-16); Blood Urea Nitrogen 25 mg/dL (9-20); Calcium 8.5 mg/dL (8.4-10.2); Carbon Dioxide 39 mmol/L (22-30); Chloride 84 mmol/L (98-107); Estimated CRCL calculation 61 ml/min; Estimated Glomerular Filt Rate > 60; Glucose 135 mg/dL (65-110); Magnesium 1.6 mg/dL (1.6-2.3); Potassium 2.9 mmol/L (3.4-5.0); Sodium 128 mmol/L (137-145)
[2022-05-09 14:00] VITALS: BP 126/58; PULSE 83; RESP 16; TEMP 36.3; O2SAT 99
--- NOTE | 2022-05-09 14:39 | PM.IMPN ---
Progress Note: A&P Assessment and Plan (1) Acute UTI: Code(s): N39.0 - Urinary tract infection, site not specified Status: Acute (2) Metabolic encephalopathy: Code(s): G93.41 - Metabolic encephalopathy Status: Acute (3) Essential (primary) hypertension: Code(s): I10 - Essential (primary) hypertension Status: Chronic (4) Stage 3 chronic kidney disease: Qualifiers: Chronic kidney disease stage 3 subtype: stage 3a (GFR 45-59) Qualified Code(s): N18.31 - Chronic kidney disease, stage 3a Code(s): N18.3 - Chronic kidney disease, stage 3 (moderate) Status: Chronic (5) Ischemic cardiomyopathy: Code(s): I25.5 - Ischemic cardiomyopathy Status: Acute (6) BPH associated with nocturia: Code(s): N40.1 - Benign prostatic hyperplasia with lower urinary tract symptoms; R35.1 - Nocturia Status: Chronic (7) Frequent falls: Code(s): R29.6 - Repeated falls Status: Acute (8) PAD (peripheral artery disease): Code(s): I73.9 - Peripheral vascular disease, unspecified Status: Chronic (9) COPD (chronic obstructive pulmonary disease): Qualifiers: COPD type: emphysema Code(s): J44.9 - Chronic obstructive pulmonary disease, unspecified Status: Chronic (10) Sick sinus syndrome: Code(s): I49.5 - Sick sinus syndrome Status: Acute (11) Pacemaker: Code(s): Z95.0 - Presence of cardiac pacemaker Status: Acute (12) Neural foraminal stenosis of lumbosacral spine: Code(s): M99.83 - Other biomechanical lesions of lumbar region Status: Chronic (13) 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 He was appropriately started a on fall precautions.? PT call OT consults have been ordered.? Reviewed med rec, patient's pregabalin may be causing some instability.? Will decrease dose to 75 daily only. Check B12/folate. Given patient's diuretic regimen along with BPH meds and antihypertensives, will check orthostatics.? Given patient's intermittent neuropathic symptoms, consider CT of cervical spine and lumbar spine. Continue Rocephin for now, urine culture pending Continue patient's home medsOn Eliquis and aspirin.? Lyrica switch to 75 daily given gait instability Continue patient's home meds Status post pacemaker BUN and creatinine at patient's baseline Continue to monitor. Known CAD status post PCI to the LAD 2013 with staged PCI to the left circ, known high-grade disease and RPDA.? On aspirin and statin.? Patient on Lasix 40 and metolazone 2.5 daily, metolazone may be too aggressive for patient.? Will hold metolazone a start Lasix b.i.d.? Patient appears euvolemic 05/05/22 pt sitting up in bed feeding himself oriented to self gram negative krunal UTI on Rocephin no fever, BP stable PT/OT following cont current care 05/06/22 persistent leukocytosis VS remain stable culture pending supportive care PT/OT 05/07/22 Proteus penneri Rocephin resistant -> Levaquin cont current care lasix 20mg IV x 1 incentive spirometry dc IVFs dc in 24-48 hours 05/08/22 cont levaquin cont lasix 40bid po monitor sodium cont incentive spirometry anticipate dc to SNF tomorrow 05/09/22 replete K lasix decreased to home dosing cont incentive spirometry possible dc tomorrow to SNF Subjective Date/time seen: 05/09/22 14:39 pt doing ok without complaints , RN notes b/l heel ulcers and wound care consult ordered Review of Sy
[2022-05-09 16:47] VITALS: PULSE 83
[2022-05-09] MEDS: POTASSIUM CHLORIDE 20 MEQ TABLET.ER 40 MEQ PO (16:47)
[2022-05-09 21:24] VITALS: BP 115/63; PULSE 116; RESP 18; TEMP 36.8; O2SAT 97
[2022-05-10 05:49] VITALS: BP 117/68; PULSE 98; RESP 20; TEMP 36.9; O2SAT 97
[2022-05-10] MEDS: APIXABAN 2.5 MG TABLET PO ×2 (08:31→19:34)
[2022-05-10] MEDS: ASPIRIN 81 MG CHEWABLE TABLET PO (08:31)
[2022-05-10] MEDS: POTASSIUM CHLORIDE 20 MEQ TABLET.ER 40 MEQ PO ×2 (08:31→16:22)
[2022-05-10] MEDS: FUROSEMIDE 40 MG TABLET PO (08:32)
[2022-05-10] MEDS: FLUTICASONE PROPIONATE 0.05% NA SPR 16 GM BTL (*BKC) 2 SPRAY NASAL (08:32)
[2022-05-10] MEDS: levoFLOXacin 500 MG/D5W 100 ML 500 MG/100 ML BAG 100 MG IVPB (08:32)
[2022-05-10] MEDS: CHOLECALCIFEROL 1,000 UNITS TABLET 5000 UNITS PO (08:32)
[2022-05-10] MEDS: FINASTERIDE 5 MG TABLET PO (08:32)
[2022-05-10] MEDS: ATORVASTATIN 40 MG TABLET PO (08:32)
[2022-05-10 08:33] VITALS: PULSE 83
[2022-05-10] MEDS: carvediloL 3.125 MG TABLET PO ×2 (08:33→16:22)
[2022-05-10 08:53] LABS: Basophils Percent Auto 0.2 % (0.2-1.2); Eosinophils Absolute Auto 0.1 K/mm3 (0-0.3); Eosinophils Percent Auto 0.6 % (0-4.4); Hemoglobin 11.1 g/dL (14.0-18.0); Immature Granulocyte Absolute 0.06 K/mm3 (0.00-0.031); Immature Granulocyte Percent A 0.5 % (0-0.5); Lymphocytes Absolute Auto 1.93 K/mm3 (0.9-3.2); Lymphocytes Percent Auto 15.6 % (18.3-44.2); Mean Corpuscular HGB Conc 32.6 g/dl (32-36); Mean Corpuscular Hemoglobin 29.9 pg (26-34); Mean Corpuscular Volume 91.6 fl (80-100); Mean Platelet Volume 9.9 fl (7.4-10.4); Monocytes Absolute Auto 1.3 K/mm3 (0.1-0.6); Monocytes Percent Auto 10.7 % (2.6-8.5); Neutrophils Percent Auto 72.4 % (45.5-73.1); Platelet Count Result 339 k/mm3 (150-375); Red Blood Count 3.71 M/mm3 (4.6-6.20); Red Cell Distribution Width 13.5 % (11.5-14.5); White Blood Count 12.4 K/mm3 (4.5-10.0)
[2022-05-10 09:12] LABS: Anion Gap 5 mmol/L (8-16); Blood Urea Nitrogen 26 mg/dL (9-20); Calcium 8.2 mg/dL (8.4-10.2); Carbon Dioxide 39 mmol/L (22-30); Chloride 85 mmol/L (98-107); Estimated CRCL calculation 67 ml/min; Estimated Glomerular Filt Rate > 60; Glucose 103 mg/dL (65-110); Magnesium 1.6 mg/dL (1.6-2.3); Potassium 2.6 mmol/L (3.4-5.0); Sodium 129 mmol/L (137-145)
[2022-05-10] MEDS: PREGABALIN (*CRX) 75 MG CAPSULE PO ×2 (09:42→16:22)
[2022-05-10] MEDS: MAGNESIUM SULF 2 GM/WATER 50ML 2 GM/50 ML BAG IVPB (10:05)
[2022-05-10] MEDS: POTASSIUM CHLORIDE 20 MEQ PACKET (FOR LIQUID) PO (10:59)
[2022-05-10 14:00] VITALS: BP 128/61; PULSE 78; RESP 16; TEMP 36.4; O2SAT 96
[2022-05-10 15:38] LABS: Anion Gap 6 mmol/L (8-16); Blood Urea Nitrogen 25 mg/dL (9-20); Calcium 7.9 mg/dL (8.4-10.2); Carbon Dioxide 39 mmol/L (22-30); Chloride 87 mmol/L (98-107); Estimated CRCL calculation 61 ml/min; Estimated Glomerular Filt Rate > 60; Glucose 146 mg/dL (65-110); Potassium 3.2 mmol/L (3.4-5.0); Sodium 132 mmol/L (137-145)
--- NOTE | 2022-05-10 15:49 | PM.DS ---
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 Qualified Code(s):?N18.31 - Chronic kidney disease, stage 3a ?Code(s): N18.3 - Chronic kidney disease, stage 3 (moderate) ?Status:?Chronic (9) Neural foraminal stenosis of lumbosacral spine: ?Code(s): M99.83 - Other biomechanical lesions of lumbar region ?Status:?Chronic DS: Discharge Diagnosis Discharge Diagnosis (1) Metabolic encephalopathy: Code(s): G93.41 - Metabolic encephalopathy Status: Acute (2) Acute UTI: Code(s): N39.0 - Urinary tract infection, site not specified Status: Acute (3) Frequent falls: Code(s): R29.6 - Repeated falls Status: Acute (4) Weakness: Code(s): R53.1 - Weakness Status: Acute (5) Ischemic cardiomyopathy: Code(s): I25.5 - Ischemic cardiomyopathy Status: Acute (6) 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: Code(s): G62.89 - Other specified polyneuropathies Status: Chronic (7) PAD (peripheral artery disease): Code(s): I73.9 - Peripheral vascular disease, unspecified Status: Chronic (8) Mixed hyperlipidemia: Code(s): E78.2 - Mixed hyperlipidemia Status: Chronic (9) Stage 3 chronic kidney disease: Qualifiers: Chronic kidney disease stage 3 subtype: stage 3a (GFR 45-59) Qualified Code(s): N18.31 - Chronic kidney disease, stage 3a Code(s): N18.3 - Chronic kidney disease, stage 3 (moderate) Status: Chronic (10) Essential (primary) hypertension: Code(s): I10 - Essential (primary) hypertension Status: Chronic (11) COPD (chronic obstructive pulmonary disease): Qualifiers: COPD type: emphysema Code(s): J44.9 - Chronic obstructive pulmonary disease, unspecified Status: Chronic (12) Pacemaker: Code(s): Z95.0 - Presence of cardiac pacemaker Status: Acute (13) Hypokalemia: Code(s): E87.6 - Hypokalemia Status: Acute (14) Sick sinus syndrome: Code(s): I49.5 - Sick sinus syndrome Status: Acute (15) BMI 31.0-31.9,adult: Code(s): Z68.31 - Body mass index [BMI] 31.0-31.9, adult Status: Acute (16) BPH associated with nocturia: Code(s): N40.1 - Benign prostatic hyperplasia with lower urinary tract symptoms; R35.1 - Nocturia Status: Chronic DS: Summary Hospital Course Reason for hospitalization: fall Hospital Course: 05/03/22 ?admit to regular medical floor ?started on Rocephin ?cultures in progress ?supportive care ?PT OT consult ?fall precautions ?weakness likely secondary to acute illness ?continue home meds ?BUN and creatinine at patient's baseline ?spinal stenosis likely contributing to recurrent falls continue to monitor ?supportive care 05/04/22 Patient admitted for evaluation after a fall.? He was appropriately started a on f
[2022-05-10 16:22] VITALS: PULSE 79
[2022-05-10 17:19] LABS: EDCOVIDSCREEN Negative (Negative)
[2022-05-10 20:52] VITALS: BP 137/67; PULSE 67; RESP 20; TEMP 37.1; O2SAT 97
== END 2022-05-10 22:29 | DRG 689 ==
LOC: ANHED 22:08 → ANH3MED 23:16
PROVIDERS: Internal Medicine; Admitting Provider Internal Medicine; Emergency Provider Emergency Medicine; PCP Family Medicine; Visit Provider Hospitalist
DX: N39.0 Urinary tract infection, site not specified (principal); G93.41 Metabolic encephalopathy; E87.1 Hypo-osmolality and hyponatremia; L97.119 Non-pressure chronic ulcer of right thigh with unspecified severity; L97.419 Non-pressure chronic ulcer of right heel and midfoot with unspecified severity; B96.89 Other specified bacterial agents as the cause of diseases classified elsewhere; L89.620 Pressure ulcer of left heel, unstageable; R29.6 Repeated falls; I25.5 Ischemic cardiomyopathy; Z20.822 Contact with and (suspected) exposure to COVID-19; G62.89 Other specified polyneuropathies; I73.9 Peripheral vascular disease, unspecified; J44.9 Chronic obstructive pulmonary disease, unspecified; N18.31 Chronic kidney disease, stage 3a; M99.83 Other biomechanical lesions of lumbar region; E78.2 Mixed hyperlipidemia; N40.1 Benign prostatic hyperplasia with lower urinary tract symptoms; M48.00 Spinal stenosis, site unspecified; R35.1 Nocturia; S40.812A Abrasion of left upper arm, initial encounter; W01.0XXA Fall on same level from slipping, tripping and stumbling without subsequent striking against object, initial encounter; Z23 Encounter for immunization; Z95.0 Presence of cardiac pacemaker; Z79.01 Long term (current) use of anticoagulants; Z79.82 Long term (current) use of aspirin
CPT/HCPCS: 36415; 51701; 70450; 71046; 80048; 80053; 81001; 82607; 82728; 82746; 83540; 83550; 83735; 85025; 85027; 87077; 87086; 87088; 87186; 87426; 90471; 90715; 93005; 96361; 96365; 96366; 96367; 97110; 97116; 97161; 97166; 97530; 97535; 99285; A9270; C9803; G0378; J0696; J1940; J1956; J3475; J7030